=== PATIENT | male | born 1950 | race Caucasian/White ===

== ENCOUNTER → 2019-07-29 14:30 | Outpatient (BNVA) | payer MEDICARE, SELFPAY | PROVIDERS: PCP Nurse Practitioner Family; Visit Provider Nurse Practitioner Family | DX: Z11.4 Encounter for screening for human immunodeficiency virus [HIV] (principal); E53.8 Deficiency of other specified B group vitamins; Z13.6 Encounter for screening for cardiovascular disorders; E79.0 Hyperuricemia without signs of inflammatory arthritis and tophaceous disease; E55.9 Vitamin D deficiency, unspecified | CPT/HCPCS: 80053; 80061; 82306; 82607; 84550; 85025; 87806 ==

== ENCOUNTER 2019-12-01 15:51 | Emergency (ER) | payer MEDICARE, SELFPAY ==
[2019-12-01 15:55] VITALS: BP 120/80; PULSE 87; RESP 16; TEMP 36.7; O2SAT 93; BMI 24.6
[2019-12-01 16:05] VITALS: PULSE 80
--- NOTE | 2019-12-01 16:08 | ED_ITS ---
HPI - Extremity Problem General: Chief complaint: Extremity Problem,Nontraumatic Stated complaint: Ring stuck on finger Time Seen by Provider: 12/01/19 15:53 History of Present Illness: HPI Narrative: 69-year-old male patient presents to the emergency department with 2 to 3-day onset of ring stuck on his fourth right finger. He reports painful, reports pain scale 10 out of 10. He states has attempted soapy water and lubricants to help get the ring off. MD Complaint: extremity swelling (Fourth finger, right) Onset (ago): day(s) (2-3) Pain Consistency: constant Location: right and upper extremity Severity scale (1-10): >10 Quality: aching and constant Radiation: none Relieving factors: nothing Exacerbating factors: nothing Associated symptoms: Reports arthralgias; Deny chest pain, fever(s) or rash Review of Systems General: Reports: 10 or more systems reviewed and unremarkable except in HPI and below Const: Denies: fever(s), chills or diaphoresis Eyes: Denies: blurry vision or eye redness ENMT: Denies: throat pain, dental pain or disequilibrium Card: Denies: chest pain, palpitations or irregular heart rhythm Resp: Denies: dyspnea, productive cough, non-productive cough or wheezing GI: Denies: abdominal pain, nausea or vomiting : Denies: dysuria Musc: Reports: extremity swelling (Fourth ring finger, right); Denies: neck pain or back pain Skin/Breast: Denies: rash or pruritus Neuro: Denies: headache(s), weakness in extremities or behavioral changes Felix/Lymph: Denies: easy bruising PFS ED PFSH: Medical History (Updated 12/01/19 @ 16:15 by EDMOND Ayers) Hepatitis C, chronic Hyperuricemia Vitamin D deficiency Family History (Updated 03/03/19 @ 13:44 by Kaelyn Rios LPN, RT) Father Diabetes Hypertension Brother Diabetes Sister Diabetes Hypertension Social History Smoking and tobacco status: current every day smoker cigarettes Packs smoked per day: 1 Years cigarettes smoked: 52 [ Other cigarette details: started age 15 ] Quit status (tobacco): not considering quitting Alcohol intake: former Year of sobriety/quit date alcohol: 2017 Former alcohol use details: heavy use Lives independently: Yes Household members: none Marital status: Single Current occupational status: disabled History of recent travel: No Current gender identity: Male Physical Exam Const: COMMON NORMALS: no acute distress, patient oriented x3, healthy appearing and alert GENERAL APPEARANCE: cooperative, comfortable and well hydrated HENMT: COMMON NORMALS: normocephalic, Normal external nose present and moist oral mucous membranes HEAD & SCALP: normocephalic NOSE: Normal external nose present Eye: COMMON NORMALS: Equal, round and reactive pupils present and EOMs intact bilaterally GENERAL EYE: appearance normal, both eyes and all related structures PUPIL: Yes Equal, round and reactive pupils present Neck/C-Spine: COMMON NORMALS: full ROM and no lymphadenopathy GENERAL: Yes normal visual inspection and Yes trachea midline CERVICAL SPINE: Yes cervical ROM normal Lymph: LYMPHATIC: no lymphadenopathy noted Chest: COMMONS NORMALS: normal inspection of the chest Resp: COMMON NORMALS: normal respiratory effort and clear to auscultation bilaterally AUSCULTATION: clear to auscultation bilaterally Cardio: COMMON NORMALS: regular rhythm, S1 normal heart sound present and S2 normal heart sound present RHYTHM: regular rhythm HEART SOUNDS: S1 normal heart sound present and S2 normal heart sound present GI: COMMON NORMALS: Soft to palpation and non-tender INSPECTION: Yes normal to inspection PALPATION: Yes Soft to palpation : COMMON NORMALS: Yes no CVA tenderness BLADDER/KIDNEY EXAM: Yes no CVA tenderness Back/Pelvis: COMMON NORMALS: no CVA tenderness and thoracic and lumbar spine normal to inspection Extremity: COMMON NORMALS: normal to inspection and capillary refill normal GENERAL: Yes normal exam except as noted RIGHT UPPER EXTREMITY: Yes hand & digits Right hand and digits: Yes inspection (Swelling and redness to the fourth digit of the right hand, ring obviously too tight. Distal circulation intact, flexion extension within normal limits. Increased swelling at the second PIP) Neuro: COMMON NORMALS: patient oriented x3 and no focal motor deficits SENSORIUM/ORIENTATION: Yes alert Psych: COMMON NORMALS: mental status grossly normal, Normal thought process present and cooperative ACTIVITY/MOTOR BEHAVIOR: Yes appropriate eye contact THOUGHT PROCESS: Normal thought process present Skin: COMMON NORMALS: no rashes or lesions noted and turgor normal GENERAL SKIN EXAM: no rashes or lesions noted and turgor normal WOUNDS: Yes wounds noted (Superficial abrasion distal to ring due to trauma while attempting to remove ring) other (Negative abrasions to the volar side, localized to dorsal side only) NAILS: normal and other (Long length of nails noted) Course ED course: 69-year-old male patient presents to the emergency department with ring stuck on his right ring finger. Ring was easily removed with ring cutter. Abrasion was present to the right dorsal fourth digit, full flexion and extension noted after removal of the ring, patient reports pain now 2 out of 10. He denies further concerns. He agrees to keep hands clean with soap and water, request to attempt topical antibiotic therapy to help with abrasion healing. No signs and symptoms of infection. Vital Signs: Vital signs: Vital Signs Temperature 98.1 F 12/01/19 15:55 Pulse Rate 80 12/01/19 16:05 Respiratory Rate 16 12/01/19 15:55 Blood Pressure 120/80 12/01/19 15:55 Pulse Oximetry 93 12/01/19 15:55 Discharge Plan Discharge Patient Disposition: Home Clinical Impression: Ring avulsion injury of finger Condition: Stable Prescriptions: No Action gabapentin 600 mg tablet 600 mg PO TID Qty: 90 RF: 1 spironolactone 25 mg tablet See Rx Instructions .ROUTE .COMPLEX Qty: 90 RF: 1 propranolol 40 mg tablet See Rx Instructions .ROUTE .COMPLEX 90 Days Qty: 180 RF: 1 allopurinol 300 mg tablet See Rx Instructions .ROUTE .COMPLEX Qty: 90 RF: 1 carbidopa-levodopa 25-100 mg tablet See Rx Instructions .ROUTE .COMPLEX Qty: 180 RF: 1 potassium chloride 20 mEq tablet,ER particles/crystals See Rx Instructions .ROUTE .COMPLEX Qty: 180 RF: 1 ketoconazole 2 % shampoo 1 applic TOPICAL .COMPLEX 56 Days Qty: 120 RF: 0 furosemide 20 mg tablet 20 mg PO QAM Qty: 7 RF: 0 ketoconazole 2 % cream 1 applic TOPICAL BID Qty: 30 RF: 5 cyanocobalamin (vitamin B-12) 1,000 mcg/mL solution 1,000 mcg IM ONCE Qty: 1 RF: 1 magnesium oxide 400 mg magnesium capsule 400 mg PO BID Qty: 60 RF: 1 multivitamin [Daily Multi-Vitamin] Tablet 1 tab PO QAM Qty: 30 RF: 1 thiamine HCl (vitamin B1) 100 mg tablet 100 mg PO DAILY Qty: 30 RF: 1 folic acid 1 mg tablet 1 mg PO DAILY Qty: 30 RF: 5 Discharge Orders: Discharge Order (Routine); Ordered 12/01/19 Ordered By: Isabell Michele Referrals: Kaelyn Pond FNP [Primary Care Provider] - Discharge Diet: Usual diet Discharge Activity: Resume usual activity Patient Instructions: Abrasion (ED) Activity Restrictions/Additional Instructions: May apply triple antibiotic ointment to abrasion of the finger as needed Return to the emergency department if you develop red streaking on the right hand or inability to move your fingers. May apply cool compresses as needed for pain Return to the emergency department for any further concerns. Discharge Date/Time: 12/01/19 16:21 Coding Level of Care Code ED Fence Making Machine Operator for Jyoti Antony Exam Comprehensive
== END 2019-12-01 16:21 | disposition home or self-care (01) ==
PROVIDERS: Emergency Provider Nurse Practitioner Family; PCP Nurse Practitioner Family
DX: S60.414A Abrasion of right ring finger, initial encounter (principal); W49.04XA Ring or other jewelry causing external constriction, initial encounter; Z86.19 Personal history of other infectious and parasitic diseases; F17.210 Nicotine dependence, cigarettes, uncomplicated
CPT/HCPCS: 12345; 99281

== ENCOUNTER → 2019-12-28 17:08 | Outpatient (BNVA) | payer MEDICARE, SELFPAY | PROVIDERS: PCP Nurse Practitioner Family; Visit Provider Nurse Practitioner Family | DX: E79.0 Hyperuricemia without signs of inflammatory arthritis and tophaceous disease (principal); E53.8 Deficiency of other specified B group vitamins; Z13.6 Encounter for screening for cardiovascular disorders; E55.9 Vitamin D deficiency, unspecified; Z12.5 Encounter for screening for malignant neoplasm of prostate; F10.21 Alcohol dependence, in remission | CPT/HCPCS: 80053; 80061; 82306; 82607; 83735; 84550; 85025; G0103 ==

== ENCOUNTER → 2020-01-11 15:22 | Outpatient (BNVA) | payer MEDICARE, SELFPAY | PROVIDERS: PCP Nurse Practitioner Family; Visit Provider Nurse Practitioner Family | DX: B18.2 Chronic viral hepatitis C (principal); G47.33 Obstructive sleep apnea (adult) (pediatric); Z68.25 Body mass index [BMI] 25.0-25.9, adult; F17.210 Nicotine dependence, cigarettes, uncomplicated; Z71.89 Other specified counseling | CPT/HCPCS: 80053; 86705; 86706; 86803; 87340; 87522; 87902 ==

== ENCOUNTER 2020-02-01 09:01 | Outpatient (CLI) | payer MEDICARE, MEDICAID, SELFPAY ==
--- NOTE | 2020-02-01 09:30 | US_ITS ---
WS: [id number] RIGHT UPPER QUADRANT ULTRASOUND HISTORY: B18.2 - Chronic viral hepatitis C COMPARISON: None available. Liver: 16.2 cm in length. Normal size liver. No bile duct dilatation or mass. Gallbladder: Prior cholecystectomy. CBD: 0.4 cm Pancreas: Not well visualized. Right kidney: 10.9 cm in length. RIGHT kidney is normal size. No hydronephrosis. There are multiple a reas of decreased echogenicity throughout the cortex. These were previously described and thought to be cysts. No solid mass identified. Aorta and IVC: Unremarkable abdominal aorta and IVC. No ascites. US/US liver [id number] IMPRESSION: 1. Prior cholecystectomy. 2. No bile duct dilatation. 3. Multiple RIGHT renal cortical cysts with the largest measuring 1.8 cm.
== END 2020-02-01 09:02 | disposition home or self-care (01) ==
LOC: RAD 09:17
PROVIDERS: PCP Nurse Practitioner Family; Visit Provider Nurse Practitioner Family
DX: B18.2 Chronic viral hepatitis C (principal); Z90.49 Acquired absence of other specified parts of digestive tract; N28.1 Cyst of kidney, acquired
CPT/HCPCS: 76705

== ENCOUNTER → 2020-03-16 09:04 | Outpatient (BNVA) | payer MEDICARE, SELFPAY | PROVIDERS: PCP Nurse Practitioner Family; Visit Provider Internal Medicine | DX: B18.2 Chronic viral hepatitis C (principal) | CPT/HCPCS: 87522 ==

== ENCOUNTER 2020-08-02 09:42 | Outpatient (CLI) | payer MEDICARE, MEDICAID, SELFPAY ==
--- NOTE | 2020-08-02 11:14 | N.ONRAD NP_ITS ---
Radiation Oncology Consultation Patient Name: Marcos Johnson Date of : 1950 Date of Service: 08/02/2020 Attending Physician: Clemente Herrera M.D. Marcos Johnson was seen in consultation this morning for evaluation regarding adjuvant head and neck radiotherapy for the management of a recently diagnosed oral cavity carcinoma. The patient was evaluated by his primary care physician in February for an enlarged left cervical lymph node and a painful sore in his mouth. He was evaluated by Sudarshan Adam M.D, an supervisor [facility] in [place], [place]. 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 A PET CT scan ordered on April 26, 2020 (independently visualized in [facility]) revealed hypermetabolic activity involving the anterior aspect of the mandible with corresponding CT thinning of the mandible without evidence of lymphadenopathy or metastatic disease. Physical examination described an exophytic mass measuring 3.5 to 4 cm in the midline anterior floor of mouth involving the ventral tongue. He was referred to the [facility] in [place], [place]. A composite resection of the anterior floor mouth with anterior glossectomy and segmental mandibular resection with bilateral modified radical neck dissection and tracheostomy was performed on May 30, 2020. An immediate reconstruction of the oromandibular defect with a left chimeric scapular tip free flap and myocutaneous latissimus dorsi free flap with an oral vestibuloplasty was completed on June 02, 2020. 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 All surgical margins were. A total of 93 lymph nodes were harvested without evidence of metastatic disease. The patient's hospital admission was complicated by a healthcare associated pneumonia of the left lower lobe of the lung (respiratory cultures positive for Raoultella ornithinolytica) requiring transfer to the intensive care unit. Dietary consultation was obtained with recommendations made for nutritional supplementation (5 1/2 cans per day of Nutren 1.5). He was evaluated for postoperative radiotherapy. I discussed with Mr. 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 close margins, lymphovascular invasion/perineural, pN2/pN3, or advanced tumors; pT3-pT4). I would endorse a six week course of radiation therapy. Prior to beginning treatment, a radiotherapy planning CT scan with contrast will be acquired to delineate the clinical target volumes. I reviewed the potential toxicities of head and neck radiotherapy. The patient has verbalized understanding and would like to proceed as advocated. Signed by: Dr. Clemente Herrera 08/02/2020 11:43:11 AM
[2020-08-02 12:00] LABS: Basophils % 0.3 %; Eosinophils # 0.1 10^3/uL (0.0-0.8); Eosinophils % 1.4 %; Hematocrit 33.3 % (42.0-52.0); Hemoglobin 10.8 g/dL (11.7-16.6); Lymphocytes # 2.7 10^3/uL (0.8-4.8); Lymphocytes % 37.5 %; Mean Corpuscular HGB Conc 32.4 g/dL (30.0-36.0); Mean Corpuscular Hemoglobin 29.7 pg (28.0-34.0); Mean Corpuscular Volume 91.5 fL (80-94); Mean Platelet Volume 11.4 fL (7.4-10.4); Monocytes # 0.6 10^3/uL (0.2-0.9); Monocytes % 8.8 %; Neutrophils % 51.7 %; Nucleated Red Blood Cells % 0 %; Platelet Count 215 10^3/cmm (130-400); Red Blood Count 3.64 10^6/uL (4.1-5.3); Red Cell Distribution Width 17.4 % (12.1-15.1); White Blood Count 7.2 10^3/uL (4.0-10.0)
[2020-08-02 12:29] LABS: Alanine Aminotransferase < 5 U/L (0-41); Albumin Level 2.6 g/dL (3.5-5.2); Alkaline Phosphatase 53 IU/L (40-130); Anion Gap 11.1 (5-19); Aspartate Amino Transferase 15 U/L (0-40); Blood Urea Nitrogen 11 mg/dL (8-23); Calcium 8.6 mg/dL (8.5-10.5); Carbon Dioxide 31 mmol/L (22-29); Chloride 98 mmol/L (98-107); Globulin 4.6 g/dL (1.3-4.6); Glomerular Filtration Rate 74.5 mL/min (90-130); Glucose 96 mg/dL (65-115); Osmolality Calculated 281 mOsm/kg (285-295); Potassium 4.1 mmol/L (3.5-5.1); Sodium 136 mmol/L (136-145); Total Bilirubin 0.2 mg/dL (0.15-1.2); Total Protein 7.2 g/dL (6.6-8.7)
== END 2020-08-02 09:43 | disposition home or self-care (01) ==
PROVIDERS: PCP Nurse Practitioner Family; Visit Provider Radiology Radiation Oncology
DX: C06.9 Malignant neoplasm of mouth, unspecified (principal); C77.0 Secondary and unspecified malignant neoplasm of lymph nodes of head, face and neck; K13.79 Other lesions of oral mucosa; Z79.899 Other long term (current) drug therapy
CPT/HCPCS: 36415; 80053; 85025; 99205

== ENCOUNTER 2020-08-04 11:13 | Inpatient (IN) | payer MEDICARE, MEDICAID, SELFPAY ==
[2020-08-04] VITALS (21 sets, daily range): BP systolic 116–167; BP diastolic 65–95; PULSE 58–125; RESP 10–20; TEMP 35.7–36.7; O2SAT 89–100; BMI 21.9
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
--- NOTE | 2020-08-04 12:25 | CT_ITS ---
WS: [id number] CT CHEST WITH INTRAVENOUS CONTRAST HISTORY: L lateral wall abscess following surgery 2 mo ago TECHNIQUE: Contiguous 5 mm axial imaging performed on the thorax. Coronal and sagittal reformats are submitted. All CT scans at [facility] use at least one of these dose optimization techniq ues: automated exposure control; mA and/or kV adjustment per patient size (includes targeted exams wh ere dose is matched to clinical indication); or iterative reconstruction. CONTRAST: Visipaque 320; 95 mL IV. DLP: 694.45 mGy.cm COMPARISON: 05/29/2020 Lungs and central airway: Mild emphysematous changes. Linear area of fibrosis and scarring in the jannie gula and LEFT lower lobe. No pneumonia. No lobar collapse or mass. Mild elevation of the LEFT hemidia phragm with LEFT pleural thickening. Pleura: Mild thickening of the LEFT thoracic the lung bases. Heart and pericardium: Mild atherosclerosis of the coronary arteries. No enlargement of the heart jarrett mbers. Mediastinum and josafat: Subcentimeter mediastinal and hilar lymph nodes. No adenopathy. Small lymph nod es in the LEFT axilla. Vessels: Mild atherosclerosis aorta. Normal size pulmonary artery. LEFT vertebral artery arises from the aorta. Chest wall and lower neck: There is a large fluid collection with peripherally enhancing wall centere d lateral to the LEFT chest wall. This elongated fluid collection with peripheral enhancement extends over a length of 12 cm and begins at the inferior border of the scapula and extends inferiorly along the chest wall with involvement of the intercostal muscles. Fluid collection extends to the scapula. There is a sharp defect within the scapula which is probably from a prior bone graft site as per his tory. Largest diameter transversely is 7.1 cm. Upper abdomen: PEG tube is in good position. Splenules versus splenosis in the LEFT upper quadrant ve rsus infarcted spleen. Multiple soft tissue nodules in the LEFT upper quadrant were negative on a [place] or PET/CT of 04/26/2020. LEFT kidney is not identified and may have been surgically removed. Osseous structures: Mild chest deformity on the LEFT due to prior healed rib fractures. Additional he aled rib fractures on the RIGHT. CT/CT chest w con* [id number] IMPRESSION: 1. Large fluid collection with peripheral enhancement centered along the LEFT lateral chest wall to involve the inferior scapula. Collection measures 12.0 x 7.1 cm and most consistent with an abscess. Osteomyelitis cannot be excluded in volving the inferior scapula due to the surrounding infection. 2. Mild pleural thickening LEFT lung base with elevated diaphragm is stable. 3. No adenopathy. 4. PEG tube in good position. 5. Focal soft tissue nodules in the LEFT upper abdomen are likely due to splen ules are stenosis or infarct is spleen. Negative on prior PET/CT.
[2020-08-04 12:46] LABS: Basophils % 0.3 %; Eosinophils # 0.1 10^3/uL (0.0-0.8); Eosinophils % 1.6 %; Hematocrit 32.8 % (42.0-52.0); Hemoglobin 10.9 g/dL (11.7-16.6); Lymphocytes # 2.6 10^3/uL (0.8-4.8); Lymphocytes % 42.1 %; Mean Corpuscular HGB Conc 33.2 g/dL (30.0-36.0); Mean Corpuscular Hemoglobin 28.8 pg (28.0-34.0); Mean Corpuscular Volume 86.8 fL (80-94); Mean Platelet Volume 10.7 fL (7.4-10.4); Monocytes # 0.6 10^3/uL (0.2-0.9); Neutrophils # 2.82 10^3/uL (1.8-7.7); Neutrophils % 45.8 %; Nucleated Red Blood Cells % 0 %; Platelet Count 219 10^3/cmm (130-400); Red Blood Count 3.78 10^6/uL (4.1-5.3); Red Cell Distribution Width 17.2 % (12.1-15.1); White Blood Count 6.2 10^3/uL (4.0-10.0)
[2020-08-04] MEDS: iodixanol 320 mg/mL 100mL Btl IV (12:54)
[2020-08-04 13:05] LABS: Lactic Sepsis W/Reflex 1.6 mmol/L (0.5-2.2)
[2020-08-04] MEDS: vancomycin 1,000 MG in sodium chloride 0.9% 250 ML 250 MG IV (13:05)
[2020-08-04 13:25] LABS: Alanine Aminotransferase < 5 U/L (0-41); Albumin Level 2.7 g/dL (3.5-5.2); Alkaline Phosphatase 57 IU/L (40-130); Anion Gap 11.4 (5-19); Aspartate Amino Transferase 16 U/L (0-40); Blood Urea Nitrogen 12 mg/dL (8-23); Calcium 8.6 mg/dL (8.5-10.5); Carbon Dioxide 30 mmol/L (22-29); Chloride 100 mmol/L (98-107); Globulin 4.3 g/dL (1.3-4.6); Glomerular Filtration Rate 66.8 mL/min (90-130); Glucose 118 mg/dL (65-115); Osmolality Calculated 285 mOsm/kg (285-295); Potassium 4.4 mmol/L (3.5-5.1); Sodium 137 mmol/L (136-145); Total Bilirubin 0.2 mg/dL (0.15-1.2)
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
[2020-08-04] MEDS: famotidine 20 mg/2 mL INJ IVP (16:40)
[2020-08-04] MEDS: lactated ringers 1,000 ML 100 ML IV (16:40)
[2020-08-04 16:50] LABS: Basophils % 0.3 %; Eosinophils # 0.1 10^3/uL (0.0-0.8); Eosinophils % 1.4 %; Hematocrit 34.7 % (42.0-52.0); Hemoglobin 11.2 g/dL (11.7-16.6); Lymphocytes # 3.2 10^3/uL (0.8-4.8); Lymphocytes % 46.8 %; Mean Corpuscular HGB Conc 32.3 g/dL (30.0-36.0); Mean Corpuscular Hemoglobin 29.2 pg (28.0-34.0); Mean Corpuscular Volume 90.4 fL (80-94); Mean Platelet Volume 10.6 fL (7.4-10.4); Monocytes # 0.7 10^3/uL (0.2-0.9); Monocytes % 9.4 %; Neutrophils # 2.89 10^3/uL (1.8-7.7); Nucleated Red Blood Cells % 0 %; Platelet Count 223 10^3/cmm (130-400); Red Blood Count 3.84 10^6/uL (4.1-5.3); Red Cell Distribution Width 17.6 % (12.1-15.1); White Blood Count 6.9 10^3/uL (4.0-10.0)
[2020-08-04 17:02] LABS: Blood Urea Nitrogen 11 mg/dL (8-23); Calcium 8.5 mg/dL (8.5-10.5); Carbon Dioxide 30 mmol/L (22-29); Chloride 100 mmol/L (98-107); Glomerular Filtration Rate 96.4 mL/min (90-130); Glucose 97 mg/dL (65-115); Osmolality Calculated 281 mOsm/kg (285-295); Sodium 136 mmol/L (136-145)
[2020-08-04 17:03] LABS: Anion Gap 10.4 (5-19); Potassium 4.4 mmol/L (3.5-5.1)
[2020-08-04] MEDS: levofloxacin-dextrose 5 % 500 MG/100 ML PREMIX 100 MG IV ×2 (18:20→21:42)
[2020-08-04] MEDS: vancomycin 1,000 MG SDV 1000 MG IRRIGATION (18:30)
--- NOTE | 2020-08-04 19:18 | SUR.OPER ---
1917 report given to hi aparicio, all questions answered, nurse ready to take pt.
--- NOTE | 2020-08-04 19:55 | P.OP_ITS ---
Operative Report Date of procedure: August 04, 2020 Pre-op Diagnosis: Left posterior lateral chest wall subscapular abscess Post-op diagnosis: same Procedure Done: Incision and drainage of left posterior lateral chest wall abscess with jet lavage irrigation and placement of wound VAC Wound dimensions are 26 cm in length by 10 cm in width by 3 cm in depth Implants: None Specimens removed/disposition: Purulent material collected and sent for appropriate cultures Surgeon: Vinayak Luu Anesthesia: Other (Laryngeal mask anesthesia) Condition: stable Disposition: ICU Brief History: Mr. Johnson is a 69-year-old gentleman status post resection of the anterior floor of the mouth with anterior glossectomy and segmental mandibular resection with bilateral modified radical neck dissection, tracheostomy and immediate reconstruction of the oral mandibular defect in the left chimeric scapular tip free flap and myocutaneous latissimus dorsi free flap with oral vestibuloplasty. This procedure was performed on June 02. He presented to the emergency department today with acute swelling of his left posterior lateral chest wall in the subscapular region. Clinically this appears to be enlarging abscess at the donor site for his myocutaneous latissimus dorsi flap. I have recommended expeditious evaluation in the surgical theater with appropriate drainage. Details the risk of the procedure were carefully discussed with Mr. Johnson and his . Proper consents have been reviewed and signed. Procedure: Mr. Johnson was taken to the operating room theater after careful preoperative evaluation by our anesthesia colleagues. He underwent laryngeal mask anesthesia and was carefully positioned in the right lateral decubitus position and was carefully secured. His entire left lateral and posterior chest wall was sterilely prepped and draped. Area of abscess cavity which has nearly spontaneously ruptured is along the incision line for his prior myocutaneous flap harvesting. This area was opened up with spontaneous return of purulent material which was collected to be sent for culture and Gram stain. Following this, the entire area was carefully explored and did not extend inferiorly but another 2 cm. However, superiorly and medially there was substantial extension of this perifascia abscess collection. #10 scalpel blade was utilized to open up completely unroofed this space area. Devitalized material was sharply removed with #10 scalpel blade and with Metzenbaum scissors. This does extend down through the tip of the scapular region where there is a sharp and thin edge which may be related to the prior harvesting. After careful meticulous debridement, 3 L of jet lavage irrigation was performed with vancomycin solution and saline. Bleeding points were controlled with judicious use of cautery. Following completion of unroofing and evacuation of this large abscess cavity, the resultant wound measures 26 cm in length by 10 cm in width by 3 cm in depth. At this point, wound VAC was subsequently carefully placed and secured and connected to negative suction 125 mmHg. Mr. Johnson tolerated procedure well was carefully returned to supine position where he was awakened from laryngeal mask anesthesia. He was carefully transferred to the ICU bed and then to the ICU. He had stable vital signs throughout the procedure and upon arrival to the ICU. I did director counseling bureau with his at the completion of the procedure. We will plan to continue IV antibiotics for another 24 to 48 hours and make preparations for continued antibiotics on outpatient basis and subsequent follow-up with his operative team in [place] as availability permits with the option to also continue follow-up with our [facility] wound care services department.
[2020-08-04] MEDS: fentaNYL 12 mcg Patch 1 PATCH TRANSDERMA (21:43)
[2020-08-04] MEDS: gabapentin 300 mg Capsule 600 MG PO (21:43)
[2020-08-05] VITALS (33 sets, daily range): BP systolic 88–154; BP diastolic 47–81; PULSE 65–84; RESP 9–20; TEMP 36.1–37.1; O2SAT 91–95; BMI 21.9
[2020-08-05] MEDS: oxyCODONE-APAP 5-325 mg Tablet 1 TAB PO ×2 (00:02→06:14)
[2020-08-05] MEDS: lactated ringers 1,000 ML 100 ML IV ×2 (02:14→12:12)
[2020-08-05 04:43] LABS: Basophils % 0.4 %; Eosinophils # 0.1 10^3/uL (0.0-0.8); Eosinophils % 1.5 %; Hematocrit 29.7 % (42.0-52.0); Hemoglobin 9.9 g/dL (11.7-16.6); Lymphocytes # 3.2 10^3/uL (0.8-4.8); Lymphocytes % 43.9 %; Mean Corpuscular HGB Conc 33.3 g/dL (30.0-36.0); Mean Corpuscular Hemoglobin 29.4 pg (28.0-34.0); Mean Corpuscular Volume 88.1 fL (80-94); Mean Platelet Volume 11.1 fL (7.4-10.4); Monocytes # 0.7 10^3/uL (0.2-0.9); Neutrophils # 3.17 10^3/uL (1.8-7.7); Neutrophils % 43.9 %; Nucleated Red Blood Cells % 0 %; Platelet Count 207 10^3/cmm (130-400); Red Blood Count 3.37 10^6/uL (4.1-5.3); Red Cell Distribution Width 17.1 % (12.1-15.1); White Blood Count 7.2 10^3/uL (4.0-10.0)
[2020-08-05 05:01] LABS: Blood Urea Nitrogen 8 mg/dL (8-23); Calcium 7.8 mg/dL (8.5-10.5); Carbon Dioxide 30 mmol/L (22-29); Chloride 99 mmol/L (98-107); Glomerular Filtration Rate 112.5 mL/min (90-130); Glucose 87 mg/dL (65-115); Osmolality Calculated 280 mOsm/kg (285-295); Sodium 136 mmol/L (136-145)
--- NOTE | 2020-08-05 05:44 | PC.NURSE ---
Shift Summary Patient arrived last night at 1930 from the OR, patient was very tired at first but woke up a few hours later alert and oriented. Plan is for patient to be here until Friday for IV antibiotics, get home wound care to help manage the wound vac and start him on some tube feeds to increase his nutrition for healing. His mom was at bedside when he got back from surgery and took his things home and is planning on bringing in clean clothes in the morning. Patient complained of mild back pain last night and responded to pain medicine well, has been resting all night. Patient was weaned off the oxygen by 2029 and has tolerated room air well.
[2020-08-05] MEDS: allopurinol 300 mg Tablet PO (06:05)
[2020-08-05] MEDS: aspirin 325 mg Tablet PO (06:05)
[2020-08-05] MEDS: vancomycin 1,000 MG in sodium chloride 0.9% 250 ML 250 MG IV (06:05)
--- NOTE | 2020-08-05 08:26 | PM.PN ---
Subjective Subjective: Interval history: Postop day #1 status post incision and drainage of left lateral and posterior chest wall and back abscess status post latissimus dorsi flap free graft harvest for oral and neck reconstruction. Mr. Johnson had an uneventful night. Vital signs are stable. He is sleeping on rounds this morning. Nursing service performed no concerns. Low output in the wound VAC which is functioning well. Vitals/I&O/Wt Last Vital Signs Temp 98.2 F 08/05/20 07:00 Pulse 77 08/05/20 07:00 Resp 9 L 08/05/20 07:00 BP 88/47 08/05/20 07:00 Pulse Ox 95 08/05/20 07:00 08/04/20 08/05/20 08/05/20 22:59 06:59 14:59 Intake Total 200 / 450 1076.667 / 1526.667 250 / 250 Output Total 50 / 50 650 / 700 Balance 150 / 400 426.667 / 826.667 250 / 250 Weight last 48 hrs Weight 171 lb Physical Exam Chest: OTHER: Wound VAC dressing is clean and dry and intact with appropriate suction at 125 mmHg. Resp: COMMON NORMALS: normal respiratory effort, No use of accessory muscles and clear to auscultation bilaterally EFFORT & INSPECTION: Yes symmetric chest movement AUSCULTATION: clear to auscultation bilaterally Cardio: COMMON NORMALS: regular rate, regular rhythm, S1 normal heart sound present and No murmurs present (Cardio) RATE: regular rate RHYTHM: regular rhythm HEART SOUNDS: S1 normal heart sound present Data : 08/05/20 03:27 08/05/20 03:27 Micro: Microbiology 08/04/20 18:33 Gram Stain - Final Chest 08/04/20 12:50 Blood Culture - Preliminary Blood SPECIMEN COLLECTED 08/04/20 12:35 Blood Culture - Preliminary Blood SPECIMEN COLLECTED A&P Assessment and plan (1) Abscess of scapular region: POD #1 status post I&D of left lateral and posterior chest wall abscess Plan: We will transfer to medical/surgical [place]. Nutrition per our dietary service through PEG tube. Soft GI diet for eating pleasure. We are attempting to contact [facility] to arrange appropriate follow-up at their request through prior conversation with our emergency department. We are also attempting to arrange for home wound VAC device. If follow-up in [place] cannot be arranged in ectasis fashion, after discussion, he can follow-up with wound care services. He already has home health nurse in place. Status: Acute Attestations Medical Necessity Statement*: POD #1 status post drainage of large left lateral chest wall abscess. Time Spent in Patient Care: less than 15 minutes Coding Level of Care Code Acute Radial Drill Press Set Up Operator for Jyoti Antony Diagnoses Abscess of scapular region L02.212
[2020-08-05] MEDS: magnesium oxide 400 mg tablet PO ×2 (08:31→17:04)
[2020-08-05] MEDS: cyanocobalamin 1,000 mcg Tablet 1000 MCG PO (08:31)
[2020-08-05] MEDS: potassium chloride ER 20 mEq Tablet 10 MEQ PO ×2 (08:31→17:04)
[2020-08-05] MEDS: folic acid 1 mg Tablet PO (08:31)
[2020-08-05] MEDS: thiamine 100 mg Tablet PO (08:31)
[2020-08-05] MEDS: pantoprazole 40 mg SDV IVP (08:31)
[2020-08-05] MEDS: spironolactone 25 mg Tablet PO (08:31)
[2020-08-05] MEDS: propranolol 20 mg Tablet PO ×2 (08:31→17:08)
[2020-08-05] MEDS: gabapentin 300 mg Capsule 600 MG PO ×3 (08:31→20:56)
[2020-08-05] MEDS: carbidopa-levodopa 25-100mg Tablet 1 EACH PO ×2 (08:31→17:04)
--- NOTE | 2020-08-05 10:36 | PC.NUTR ---
TF consult. 2 feeding options recommended as indicated below, per pt and MD preference: Nutren 2.0, 5 times per day, with 240 ml (1 cup) H2O flushes q4 hrs (6 times per day) to provide 2500 kcal, 105 g protein, and 2305 ml H2O. This formula is not available in facility and would be provided by pt/family. OR Jevity 1.2, 350 ml bolus q4 hrs (6x per day), with 120 ml H2O flush q4 hrs (6 times per day) to provide 2520 kcal, 117 g protein, and 2415 ml H2O. This is available in facility at this time. Recommend monitor glucose, Na, K, and renal labs, given CKD stage 3. Also recommend speech evaluation for oral diet provision. Recommend liquids to be nectar thick per mother's statements, and possible change to pureed texture of diet. See RD assessment for further details.
[2020-08-05] MEDS: famotidine 20 mg Tablet PO (12:30)
[2020-08-05] MEDS: sennosides 8.6 mg Tablet PO (12:30)
[2020-08-05] MEDS: ketoconazole Cream 15 gm 1 APPLIC TOPICAL ×2 (12:32→21:07)
[2020-08-05] MEDS: vancomycin 1,250 MG/250 ML PIGGYBACK 250 MG IV (17:04)
--- NOTE | 2020-08-05 18:12 | PC.NURSE ---
SHIFT SUMMARY PATIENT HAS DONE WELL TODAY. MINIMAL COMPLAINTS OF PAIN. TOLERATING SOFT FOODS WELL. CRUSHING MEDS AND PLACING IN APPLESAUCE. GOOD URINE OUTPUT. WOUND VAC IN PLACE. NO COMPLAINTS AT THIS TIME.
[2020-08-05] MEDS: levofloxacin-dextrose 5 % 500 MG/100 ML PREMIX 100 MG IV (20:59)
[2020-08-06] VITALS (7 sets, daily range): BP systolic 93–118; BP diastolic 56–71; PULSE 73–84; RESP 16–18; TEMP 36.6–37.4; O2SAT 91–95; BMI 21.9
[2020-08-06] MEDS: lactated ringers 1,000 ML 100 ML IV ×3 (00:18→17:40)
[2020-08-06] MEDS: vancomycin 1,250 MG/250 ML PIGGYBACK 250 MG IV ×2 (04:06→22:47)
--- NOTE | 2020-08-06 06:07 | P.PN_ITS ---
Subjective Subjective: Interval history: Postop day #2 status post I&D of large left chest wall abscess with placement of wound VAC. Mr. Johnson appears to be comfortable. He has remained afebrile. Morning lab is pending. Vitals/I&O/Wt Last Vital Signs Temp 98.4 F 08/06/20 04:00 Pulse 82 08/06/20 04:00 Resp 16 08/06/20 04:00 BP 118/60 08/06/20 04:00 Pulse Ox 92 08/06/20 04:00 08/05/20 08/05/20 08/06/20 14:59 22:59 06:59 Intake Total 1246.667 / 4499.325 6211 / 2716.667 132.5 / 2849.167 Output Total 225 / 225 1650 / 1875 250 / 2125 Balance 1021.667 / 1021.667 -180 / 841.667 -117.5 / 724.167 Weight last 48 hrs Weight 171 lb Weight 171 lb Physical Exam Chest: OTHER: Wound VAC dressing remains in position. Resp: COMMON NORMALS: normal respiratory effort, No retractions, No use of accessory muscles and clear to auscultation bilaterally AUSCULTATION: clear to auscultation bilaterally Cardio: COMMON NORMALS: regular rate, regular rhythm, S1 normal heart sound pr esent and No murmurs present (Cardio) RATE: regular rate RHYTHM: regular rhythm HEART SOUNDS: S1 normal heart sound present Extremity: COMMON NORMALS: no clubbing, cyanosis or edema Data : 08/05/20 03:27 08/05/20 03:27 Micro: Microbiology 08/04/20 12:50 Blood Culture - Preliminary Blood NEGATIVE TO DATE 08/04/20 12:35 Blood Culture - Preliminary Blood NEGATIVE TO DATE 08/04/20 18:33 Gram Stain - Final Chest A&P Assessment and plan (1) Abscess of scapular region: Mr. Johnson continues to do well. I will plan for reinspection of his chest wall wound with debridement, irrigation and replacement of wound VAC for tomorrow. We are currently awaiting arrival of a home wound VAC pump. We are also awaiting confirmation of follow- up with the surgeons at the [facility] in [place]. Hopefully, we will be able to discharged home after debridement and wound VAC replacement t omorrow. If arrangements cannot be made in a timely fashion to be seen by his physicians at the [facility], he will be scheduled for follow-up in the wound care services department. Status: Acute Attestations Medical Necessity Statement*: Status post latissimus dorsi free graft harvesting from the left chest wall for oral pharyngeal reconstruction. Left chest wall abscess status post incision and drainage of large chest wall wound and placement of wound VAC. Time Spent in Patient Care: less than 15 minutes Coding Level of Care Code Acute Fish Straightener for Jyoti Antony Diagnoses Abscess of scapular region L02.212
[2020-08-06] MEDS: multivitamin therapeutic Tablet 1 TAB PO (06:18)
[2020-08-06] MEDS: aspirin 325 mg Tablet PO (06:18)
[2020-08-06] MEDS: allopurinol 300 mg Tablet PO (06:18)
[2020-08-06] MEDS: cyanocobalamin 1,000 mcg Tablet 1000 MCG PO (09:50)
[2020-08-06] MEDS: sennosides 8.6 mg Tablet PO (09:50)
[2020-08-06] MEDS: spironolactone 25 mg Tablet PO (09:51)
[2020-08-06] MEDS: carbidopa-levodopa 25-100mg Tablet 1 EACH PO ×2 (09:51→17:39)
[2020-08-06] MEDS: thiamine 100 mg Tablet PO (09:51)
[2020-08-06] MEDS: famotidine 20 mg Tablet PO (09:51)
[2020-08-06] MEDS: propranolol 20 mg Tablet PO ×2 (09:51→17:39)
[2020-08-06] MEDS: potassium chloride ER 20 mEq Tablet 10 MEQ PO ×2 (09:51→17:39)
[2020-08-06] MEDS: magnesium oxide 400 mg tablet PO ×2 (09:52→17:39)
[2020-08-06] MEDS: folic acid 1 mg Tablet PO (09:52)
[2020-08-06] MEDS: gabapentin 300 mg Capsule 600 MG PO ×3 (09:52→20:12)
[2020-08-06] MEDS: pantoprazole 40 mg SDV IVP (09:53)
--- NOTE | 2020-08-06 10:50 | PC.NURSE ---
Rcvd order from Dr Luu to start tube feeding. Buttermaker put order in to start Jevity 1.2 350ml bolus Q4H and 120ml water flush Q4H.
--- NOTE | 2020-08-06 11:16 | PC.NURSE ---
Administered 350ml Jevity 1.2 and 120ml water in PEG.
[2020-08-06 17:08] LABS: Vancomycin Trough 22.8 ug/mL (10-15)
--- NOTE | 2020-08-06 17:28 | PC.NURSE ---
vancomycin trough is 22.8. technical publications writer spoke with Doyle in pharmacy and per Doyle hold dose of Vancomycin scheduled for 1700
[2020-08-06] MEDS: ketoconazole Cream 15 gm 1 APPLIC TOPICAL (17:39)
--- NOTE | 2020-08-06 17:55 | PC.NURSE ---
cleaned around PEG tube with NS and cotton swab.
--- NOTE | 2020-08-06 18:51 | PC.NURSE ---
administered tube feeding as ordered.
[2020-08-06] MEDS: oxyCODONE-APAP 5-325 mg Tablet 1 TAB PO (20:11)
[2020-08-06] MEDS: levofloxacin-dextrose 5 % 500 MG/100 ML PREMIX 100 MG IV (20:13)
[2020-08-07] VITALS (16 sets, daily range): BP systolic 86–126; BP diastolic 52–89; PULSE 59–87; RESP 16–20; TEMP 36.3–37.6; O2SAT 91–100
--- NOTE | 2020-08-07 00:33 | PC.NURSE ---
attempted to notify Dr Luu of bp 86/52, was told by laser beam machine operator that Dr Luu was off call without coverage, notified boarding house manager and was advised to call the cardiology on-call, Dr Gasca, received order from Dr Gasca to increase IVF to 125 ml/hr untill bp was back in normal range
[2020-08-07] MEDS: lactated ringers 1,000 ML 100 ML IV (05:17)
--- NOTE | 2020-08-07 06:41 | PM.PN ---
Subjective Subjective: Interval history: Postop day #3 status post I&D of large left chest wall abscess with wound VAC placement. Mr. Johnson has continued to do well. We are still awaiting arrival of the wound VAC system so he may be discharged back to home. Vital signs are stable. Postop discomfort under good control. Vitals/I&O/Wt Last Vital Signs Temp 97.9 F 08/07/20 04:00 Pulse 73 08/07/20 04:00 Resp 18 08/07/20 04:00 BP 94/59 08/07/20 04:00 Pulse Ox 96 08/07/20 04:00 08/06/20 08/06/20 08/07/20 14:59 22:59 06:59 Intake Total 956.667 / 593.595 4653 / 6128.667 2324 / 8452.667 Output Total 250 / 250 375 / 625 720 / 1345 Balance 706.667 / 590.031 9135 / 5503.667 1604 / 7107.667 Weight last 48 hrs Weight 171 lb Weight 171 lb Physical Exam Chest: OTHER: Wound VAC is in good position. No substantial air leak. Moderate drainage in canister. Resp: COMMON NORMALS: normal respiratory effort, No use of accessory muscles and clear to auscultation bilaterally EFFORT & INSPECTION: Yes able to speak in complete sentences AUSCULTATION: clear to auscultation bilaterally Cardio: COMMON NORMALS: regular rate, regular rhythm and S1 normal heart sound present RATE: regular rate RHYTHM: regular rhythm HEART SOUNDS: S1 normal heart sound present Data : 08/05/20 03:27 08/05/20 03:27 Micro: Microbiology 08/04/20 18:33 Gram Stain - Final Chest Tissue Culture - Preliminary Yeast A&P Assessment and plan (1) Abscess or cellulitis of back: Postop day #3 status post I&D Plan: We will return to operating room theater for conscious sedation to allow for initial wound VAC dressing change to this large wound, debridement as needed, and replacement of wound VAC. Will plan to discharge home as soon as we can obtain a wound VAC system that will allow for home use. Status: Acute Attestations Medical Necessity Statement*: Status post I&D of large abscess surgical wound left chest wall and back Time Spent in Patient Care: less than 15 minutes Coding Level of Care Code Acute Research Investigator for Chg Fwd Diagnoses Abscess or cellulitis of back
[2020-08-07] MEDS: propranolol 20 mg Tablet PO ×2 (10:30→17:06)
[2020-08-07] MEDS: gabapentin 300 mg Capsule 600 MG PO ×3 (10:30→21:05)
[2020-08-07] MEDS: sennosides 8.6 mg Tablet PO (10:31)
[2020-08-07] MEDS: carbidopa-levodopa 25-100mg Tablet 1 EACH PO ×2 (10:31→17:06)
[2020-08-07] MEDS: thiamine 100 mg Tablet PO (10:31)
[2020-08-07] MEDS: spironolactone 25 mg Tablet PO (10:31)
[2020-08-07] MEDS: famotidine 20 mg Tablet PO (10:31)
[2020-08-07] MEDS: cyanocobalamin 1,000 mcg Tablet 1000 MCG PO (10:31)
[2020-08-07] MEDS: magnesium oxide 400 mg tablet PO ×2 (10:31→17:06)
[2020-08-07] MEDS: potassium chloride ER 20 mEq Tablet 10 MEQ PO ×2 (10:32→17:06)
[2020-08-07] MEDS: ketoconazole Cream 15 gm 1 APPLIC TOPICAL ×2 (10:32→17:07)
[2020-08-07] MEDS: folic acid 1 mg Tablet PO (10:32)
[2020-08-07] MEDS: pantoprazole 40 mg SDV IVP (10:32)
--- NOTE | 2020-08-07 11:00 | PC.SOCIAL ---
IMM Update pg.2 of IMM updated and reviewed with patient, who verbalized understanding. Copy provided.
[2020-08-07] MEDS: fentaNYL 50 mcg/mL INJ 2mL IVP (12:33)
--- NOTE | 2020-08-07 12:43 | P.OP_ITS ---
Operative Report Date of procedure: August 07, 2020 Pre-op Diagnosis: Status post I&D left posterior lateral chest wall subscapular abscess Post-op diagnosis: same Procedure Done: Debridement left lateral posterior chest wall wound with reapp lication of wound VAC Pathology: none sent Surgeon: Vinayak Luu Anesthesia: General (Laryngeal mask) Condition: stable Disposition: PACU Brief History: Mr. 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 He is now being returned operating room theater for further debridement as necessary and reapplication of the new wound VAC dressing. Procedure: Mr. Johnson was taken operating room theater carefully positioned supine underwent general anesthesia via laryngeal mask. He was carefully turned to the right lateral cubitus position over protective padding and secured. Old wound VAC dressing was removed and the entire wound was then prepped and draped. There is substantial granulation tissue in the wound now. There was some devitalized areas posteriorly and in the subscapular region which underwent sharp debridement with Metzenbaum scissors. Mild bleeding. Easily controlled with cautery. Wound was irrigated with antibiotic solution. We then reapplied a new wound VAC dressing for dimensions as during the original surgery; 26 cm in length by 10 cm in width by 3 cm in depth. Mr. Johnson was returned to the supine position where he was awakened from anesthesia. He was then transferred over to the postoperative care unit. He will be scheduled for discharge to home once we have obtained a homebound wound VAC system.
--- NOTE | 2020-08-07 13:32 | PC.NURSE ---
administered tube feeding, 350ml jevity 1.2 and 120ml water.
--- NOTE | 2020-08-07 13:37 | ANE.PACU2 ---
Inpatient post-anesthesia follow up: Airway intact: Yes Vital signs: Temperature 97.4 F Pulse Rate [Monito r] 82 Pulse Rate 59 Respiratory Rate 17 Blood Pressure [Le ft Arm] 116/69 Blood Pressure 108/60 Pulse Oximetry 95 Oxygen Delivery Me thod Room Air Oxygen Flow Rate 6 Fraction of Inspir ed Oxygen Hydration adequate: Yes Nausea and vomiting: No Pain level: 2 Mental status: Baseline
--- NOTE | 2020-08-07 13:57 | SUR.PHASEI ---
1253 PT AWAKES EASILY WITH GOOD RESP NOTED ON RA, VSS LT AXILLARY WOUND VAC IN PLACE AND WORKING, PT ORIENTED TO PERSON PLACE , TOWN, PT SLEEPS IF NOT DISTURBED PT TO FLOOR PER CART 1205 PT MOVES SELF TO BED WITH MINIMAL ASSIST NOTED.
[2020-08-07] MEDS: fluconazole premix 100 MG in empty flexible container 1 EACH 50 MG IV (14:21)
--- NOTE | 2020-08-07 18:16 | PC.RESP ---
SMOKING CESSATION INFORMATION SENT TO PATIENT.
--- NOTE | 2020-08-07 18:25 | PC.NURSE ---
notified Dr Luu that patient's home wound vac has arrived.
[2020-08-07] MEDS: fentaNYL 12 mcg Patch 1 PATCH TRANSDERMA (21:05)
[2020-08-07] MEDS: oxyCODONE-APAP 5-325 mg Tablet 1 TAB PO (21:07)
[2020-08-08] VITALS (7 sets, daily range): BP systolic 94–113; BP diastolic 59–71; PULSE 82–99; RESP 14–18; TEMP 36.2–36.9; O2SAT 92–94
[2020-08-08] MEDS: lactated ringers 1,000 ML 125 ML IV ×3 (01:27→17:10)
[2020-08-08] MEDS: multivitamin therapeutic Tablet 1 TAB PO (05:47)
[2020-08-08] MEDS: aspirin 325 mg Tablet PO (05:47)
[2020-08-08] MEDS: allopurinol 300 mg Tablet PO (05:47)
--- NOTE | 2020-08-08 06:45 | P.DS_ITS ---
Discharge Providers Date of Admission: 08/04/20 16:29 Date of Discharge: August 08, 2020 Attending Provider at Admission: Vinayak Luu MD Attending Provider at Discharge: Vinayak Luu MD Primary Care Provider: BAILEY Ramon Diagnoses at Discharge Discharge Diagnosis (1) Abscess or cellulitis of back: Status: Acute Reason for Visit Reason for Visit: ABCESS ON LEFT SHOULDER AFTER SURGERY Hospital Course Hospital Course Mr. Johnson is a 69-year-old gentleman who was admitted upon, he had a large to the emergency department on August 04 with a large left lateral posterior chest wall abscess. He is status post anterior glossectomy and segmental mandibular resection with bilateral modified radical neck dissection, tracheostomy and immediate reconstruction of the oral mandible defect in the left chimeric scapular tip free flap and myocutaneous latissimus dorsi free flap with oral vestibuloplasty. This was all performed on June 02 at [facility]. Upon presentation, he had a large tear erupting abscess what appeared to be the area for harvesting of latissimus dorsi free flap. He was taken operating room underwent incision and drainage of a large abscess cavity with subsequent R irrigation, debridement, and placement of wound VAC. Initially received vancomycin. 3 days later, on August 07, he was returned to operating room theater for reexploration, further debridement, and placement of a second wound VAC. He has done well. There was noted upon reexploration to be early and consistent granulation tissue throughout this large wound. Discharge was delayed while we are awaiting a home wound VAC system. He will be discharged home today with home health services. Wound VAC is in position. We will confirm follow-up appointment at the [facility], at their request. They have been consulted by phone at the time of his presentation to the emergency department and stated they had no available beds. If there is substantial delay in this appointment, we will have him schedule a follow-up with wound care services here at [facility]. At the time of discharge, he is in stable condition. Physical Exam Chest: OTHER: Wound VAC is in position on the left lateral-posterior chest wall and is functioning well. Resp: COMMON NORMALS: normal respiratory effort, No use of accessory muscles, clear to auscultation bilaterally and percussion normal EFFORT & INSPECTION: Yes able to speak in complete sentences and Yes symmetric chest movement AUSCULTATION: clear to auscultation bilaterally PERCUSSION: percussion normal Cardio: COMMON NORMALS: regular rate, regular rhythm, S1 normal heart sound present and No murmurs present (Cardio) RATE: regular rate RHYTHM: regular rhythm HEART SOUNDS: S1 normal heart sound present GI: COMMON NORMALS: Normal to inspection, nondistended, normoactive bowel sounds present OTHER: PEG tube is in position and functioning well. Extremity: COMMON NORMALS: no clubbing, cyanosis or edema Discharge Data 2 Data Completed and Pending: Completed Studies During Hospitalization Category Date Time Status CT chest w con* 7 [id number] Urgent Cat Scan 08/04/20 12:25 Completed Pending at discharge Category Date Time Status Blood Culture Rou lisa Lab 08/04/20 12:50 Results Blood Culture Sta t Lab 08/04/20 12:35 Results Tissue Culture an d Gram Stain Routi ne Lab 08/04/20 18:33 Results Vitals: Last Vital Signs Temp 98.2 F 08/08/20 03:38 Pulse 96 08/08/20 03:38 Resp 17 08/08/20 03:38 BP 102/68 08/08/20 03:38 Pulse Ox 92 08/08/20 03:38 Discharge Plan Discharge Patient Disposition: Home Health Service Condition: Stable Prescriptions: Continued magnesium oxide 400 mg magnesium capsule 400 mg PO BID Qty: 60 RF: 1 multivitamin [Daily Multi-Vitamin] Tablet 1 tab PO QAM Qty: 30 RF: 1 thiamine HCl (vitamin B1) 100 mg tablet 100 mg PO DAILY Qty: 30 RF: 1 (DME) C-PAP See Rx Instructions .Route .MEDSUPPLY Qty: 1 RF: 0 senna 8.6 mg tablet 8.5 mg PO DAILY RF: 0 aspirin 325 mg Tablet 325 mg PO QAM RF: 0 melatonin 3 mg tablet 3 mg PO BEDTIME RF: 0 oxycodone-acetaminophen 5-325 mg tablet 1 tab PO Q6H PRN (Reason: Pain) RF: 0 famotidine 20 mg tablet 20 mg PO DAILY RF: 0 cyanocobalamin (vitamin B-12) 500 mcg tablet 1,000 mcg PO DAILY RF: 0 propranolol 20 mg tablet 20 mg PO BID RF: 0 fentanyl 12 mcg/hr patch 72 hour 12 mcg transdermal Q72H RF: 0 gabapentin 600 mg tablet 600 mg PO TID RF: 0 spironolactone 25 mg tablet 25 mg PO DAILY RF: 0 potassium chloride 20 mEq tablet,ER particles/crystals 10 meq PO BID RF: 0 folic acid 1 mg tablet 1 mg PO DAILY RF: 0 allopurinol 300 mg tablet 300 mg PO QAM RF: 0 carbidopa-levodopa 25-100 mg tablet 1 tab PO BID RF: 0 ketoconazole 2 % cream 1 applic topical BID RF: 0 Chantix Starting Month Box 0.5 mg (11)- 1 mg (42) tablets,dose pack See Rx Instructions PO PER PKG DIR RF: 0 Discharge Orders: Discharge Order (Routine); Ordered 08/08/20 Ordered By: Vinayak Luu Referrals: [facility] ([facility]) [Other] (A follow-up is requested with Dr Almonte. Appointments are made Friday-Friday 7:30am to 12:30pm.) WOUND [facility]ARE [facility], [Staff Physician] - 1-3 days Discharge Diet: Usual diet Discharge Activity: Resume usual activity Patient Instructions: Opioid Safety Discharge Attestations Time Spent in Discharge Care*: less than 30 min Specific Discharge Activities: educating patient, discussing with embedded case manager/social workers/dc planners, documenting/other paperwork and evaluating patient/reviewing data Status at Discharge: Cognitive status at discharge: cognitively intact , Functional status at discharge: independent ambulation Overall status at discharge: patient is back to baseline Quality Metrics Clinical Quality Measures During this hospital stay, did patient experience: None Coding Level of Care Code Acute Chg FW DC note Diagnoses Abscess or cellulitis of back
[2020-08-08] MEDS: pantoprazole 40 mg SDV IVP (09:07)
[2020-08-08] MEDS: famotidine 20 mg Tablet PO (09:07)
[2020-08-08] MEDS: propranolol 20 mg Tablet PO ×2 (09:07→17:09)
[2020-08-08] MEDS: magnesium oxide 400 mg tablet PO ×2 (09:07→17:09)
[2020-08-08] MEDS: potassium chloride ER 20 mEq Tablet 10 MEQ PO (09:07)
[2020-08-08] MEDS: carbidopa-levodopa 25-100mg Tablet 1 EACH PO ×2 (09:07→17:09)
[2020-08-08] MEDS: thiamine 100 mg Tablet PO (09:07)
[2020-08-08] MEDS: cyanocobalamin 1,000 mcg Tablet 1000 MCG PO (09:07)
[2020-08-08] MEDS: folic acid 1 mg Tablet PO (09:07)
[2020-08-08] MEDS: spironolactone 25 mg Tablet PO (09:07)
[2020-08-08] MEDS: sennosides 8.6 mg Tablet PO (09:07)
[2020-08-08] MEDS: gabapentin 300 mg Capsule 600 MG PO ×3 (09:07→20:51)
[2020-08-08] MEDS: fluconazole premix 100 MG in empty flexible container 1 EACH 50 MG IV (13:45)
--- NOTE | 2020-08-08 14:55 | PC.NURSE ---
Per case management, patient unable to be discharged today because home wound vac not available.
--- NOTE | 2020-08-08 16:44 | PC.NURSE ---
vd critical tissue culture, notified Dr Luu. Rcvd verbal order from Dr Luu for Bactrim DS 1 Tab PO BID and start now. and Place patient on contact isolation. headline writer put orders in.
[2020-08-08] MEDS: potassium chloride ER 10 mEq Tablet PO (17:09)
[2020-08-08] MEDS: sulfamethoxazole-trimeth DS 160-800 mg Tablet 1 TAB PO (17:10)
[2020-08-08] MEDS: ketoconazole Cream 15 gm 1 APPLIC TOPICAL (17:11)
[2020-08-08] MEDS: oxyCODONE-APAP 5-325 mg Tablet 1 TAB PO (20:50)
[2020-08-09] VITALS: BP 101/65; PULSE 82; RESP 16; TEMP 37; O2SAT 93
[2020-08-09] MEDS: lactated ringers 1,000 ML 125 ML IV ×2 (01:08→08:23)
[2020-08-09 04:00] VITALS: BP 94/57; PULSE 82; RESP 16; TEMP 36.7; O2SAT 91
[2020-08-09] MEDS: multivitamin therapeutic Tablet 1 TAB PO (05:46)
[2020-08-09] MEDS: aspirin 325 mg Tablet PO (05:46)
[2020-08-09] MEDS: allopurinol 300 mg Tablet PO (05:46)
[2020-08-09 08:02] VITALS: BP 105/67; PULSE 82; RESP 15; TEMP 36.9; O2SAT 92
[2020-08-09] MEDS: folic acid 1 mg Tablet PO (08:25)
[2020-08-09] MEDS: spironolactone 25 mg Tablet PO (08:25)
[2020-08-09] MEDS: sulfamethoxazole-trimeth DS 160-800 mg Tablet 1 TAB PO (08:25)
[2020-08-09] MEDS: potassium chloride ER 10 mEq Tablet PO (08:25)
[2020-08-09] MEDS: famotidine 20 mg Tablet PO (08:25)
[2020-08-09] MEDS: magnesium oxide 400 mg tablet PO (08:25)
[2020-08-09] MEDS: gabapentin 300 mg Capsule 600 MG PO (08:25)
[2020-08-09] MEDS: propranolol 20 mg Tablet PO (08:25)
[2020-08-09] MEDS: thiamine 100 mg Tablet PO (08:25)
[2020-08-09] MEDS: carbidopa-levodopa 25-100mg Tablet 1 EACH PO (08:25)
[2020-08-09] MEDS: sennosides 8.6 mg Tablet PO (08:25)
[2020-08-09] MEDS: pantoprazole DR 40 mg Tablet PO (08:25)
[2020-08-09] MEDS: cyanocobalamin 1,000 mcg Tablet 1000 MCG PO (08:25)
[2020-08-09] MEDS: ketoconazole Cream 15 gm 1 APPLIC TOPICAL (08:26)
--- NOTE | 2020-08-09 09:36 | PC.SOCIAL ---
IMM Updated Updated pt on Pg 2 IMM. No questions voiced. Provided pt a copy. Signed, dated, & timed copy in chart.
[2020-08-09 11:25] VITALS: BP 100/63; PULSE 77; RESP 16; TEMP 36.8; O2SAT 93
[2020-08-09 11:42] VITALS: RESP 16
[2020-08-09] MEDS: oxyCODONE-APAP 5-325 mg Tablet 1 TAB PO (11:42)
[2020-08-09 13:12] VITALS: BP 105/67; PULSE 82; RESP 16; TEMP 36.8; O2SAT 92
== END 2020-08-09 13:16 | disposition home health service (06) | DRG 857 ==
LOC: ER 14:53 → MEDSURG 17:37 → ICU 19:25 → MEDSURG 08-05 12:04
PROVIDERS: Admitting Provider Thoracic Surgery (Cardiothoracic Vascular Surgery); Emergency Provider Physician Assistant; PCP Nurse Practitioner Family; Visit Provider Thoracic Surgery (Cardiothoracic Vascular Surgery)
PROC: 0JB70ZZ Excision of Back Subcutaneous Tissue and Fascia, Open Approach (ICD-10-PCS; principal; 2020-08-04 17:00)
PROC: 0JB70ZZ Excision of Back Subcutaneous Tissue and Fascia, Open Approach (ICD-10-PCS; 2020-08-04 17:00)
DX: T81.42XA Infection following a procedure, deep incisional surgical site, initial encounter (principal); C77.0 Secondary and unspecified malignant neoplasm of lymph nodes of head, face and neck; L02.213 Cutaneous abscess of chest wall; C04.9 Malignant neoplasm of floor of mouth, unspecified; Z93.1 Gastrostomy status; G62.1 Alcoholic polyneuropathy; F10.11 Alcohol abuse, in remission; K52.9 Noninfective gastroenteritis and colitis, unspecified; N18.30 Chronic kidney disease, stage 3 unspecified; Z86.718 Personal history of other venous thrombosis and embolism; G25.0 Essential tremor; B18.2 Chronic viral hepatitis C; I73.9 Peripheral vascular disease, unspecified; K86.89 Other specified diseases of pancreas; E53.9 Vitamin B deficiency, unspecified; E55.9 Vitamin D deficiency, unspecified; Z90.81 Acquired absence of spleen; Z79.891 Long term (current) use of opiate analgesic; Z93.0 Tracheostomy status; F17.210 Nicotine dependence, cigarettes, uncomplicated; Y83.8 Other surgical procedures as the cause of abnormal reaction of the patient, or of later complication, without mention of misadventure at the time of the procedure
CPT/HCPCS: 36415; 71260; 80048; 80053; 80202; 83605; 85025; 87040; 87070; 87077; 87106; 87176; 87186; 87205; 94664; 96365; 96375; 99205; 99285; C9113; J1450; J1956; J2250; J2370; J2704; J3010; J3370; J3490; J7050; Q9967

== ENCOUNTER 2020-08-14 13:11 | Outpatient (CLI) | payer MEDICARE, MEDICAID, SELFPAY | END 2020-08-14 13:12 | disposition home or self-care (01) | LOC: WOUND 13:14 | PROVIDERS: PCP Nurse Practitioner Family; Visit Provider Nurse Practitioner Family | DX: T81.89XA Other complications of procedures, not elsewhere classified, initial encounter (principal); Y83.8 Other surgical procedures as the cause of abnormal reaction of the patient, or of later complication, without mention of misadventure at the time of the procedure; B19.20 Unspecified viral hepatitis C without hepatic coma | CPT/HCPCS: 11042; 11045; 87522; G0463 ==

== ENCOUNTER 2020-08-21 14:05 | Outpatient (CLI) | payer MEDICARE, MEDICAID, SELFPAY | END 2020-08-21 14:06 | disposition home or self-care (01) | LOC: WOUND 14:08 | PROVIDERS: PCP Nurse Practitioner Family; Visit Provider Nurse Practitioner Family | DX: T81.89XA Other complications of procedures, not elsewhere classified, initial encounter (principal); Y83.8 Other surgical procedures as the cause of abnormal reaction of the patient, or of later complication, without mention of misadventure at the time of the procedure | CPT/HCPCS: 11042; 11045; 97606 ==

== ENCOUNTER 2020-08-30 10:58 | Outpatient (CLI) | payer MEDICARE, MEDICAID, SELFPAY | END 2020-08-30 10:59 | disposition home or self-care (01) | LOC: WOUND 11:00 | PROVIDERS: PCP Nurse Practitioner Family; Visit Provider Nurse Practitioner Family | DX: T81.89XA Other complications of procedures, not elsewhere classified, initial encounter (principal); Y83.8 Other surgical procedures as the cause of abnormal reaction of the patient, or of later complication, without mention of misadventure at the time of the procedure | CPT/HCPCS: 11042; 11045; 97606 ==

== ENCOUNTER 2020-09-11 15:11 | Outpatient (CLI) | payer MEDICARE, MEDICAID, SELFPAY | END 2020-09-11 15:12 | disposition home or self-care (01) | LOC: WOUND 15:13 | PROVIDERS: PCP Nurse Practitioner Family; Visit Provider Thoracic Surgery (Cardiothoracic Vascular Surgery) | DX: T81.89XA Other complications of procedures, not elsewhere classified, initial encounter (principal); Y83.8 Other surgical procedures as the cause of abnormal reaction of the patient, or of later complication, without mention of misadventure at the time of the procedure | CPT/HCPCS: 11042; 11045 ==

== ENCOUNTER 2020-09-18 13:57 | Outpatient (CLI) | payer MEDICARE, MEDICAID, SELFPAY | END 2020-09-18 13:58 | disposition home or self-care (01) | LOC: WOUND 13:58 | PROVIDERS: PCP Nurse Practitioner Family; Visit Provider Nurse Practitioner Family | DX: T81.89XA Other complications of procedures, not elsewhere classified, initial encounter (principal); Y83.8 Other surgical procedures as the cause of abnormal reaction of the patient, or of later complication, without mention of misadventure at the time of the procedure | CPT/HCPCS: 11042; 11045 ==

== ENCOUNTER 2020-09-22 05:51 | Outpatient (RCR) | payer MEDICARE, MEDICAID, SELFPAY ==
--- NOTE | 2020-09-13 | CT_ITS ---
Radiation Therapy Planning CT images; total exam DLP: 544.47 mGy-cm MTDD
--- NOTE | 2020-09-13 13:31 | ONCRAD EPV_ITS ---
Radiation Oncology Established Patient Visit Patient: Alex Rodríguez [id number] : 1950> Age: 69> Sex: Male> Dictated by: Dr. 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 Current History: Mr. Johnson returns. He saw Dr. Herrera August 02 and at that time plans were to proceed on with postoperative radiation for 6 weeks. However the patient developed a large complex abscess in the donor site area on his back. He required surgical management and has had a wound VAC in place for approximately the past month. That was removed yesterday and he was told he could return for radiation planning. In terms of the head neck area, he has been doing well. He is able to take a liquid and soft diet by mouth without difficulty. He has not used his feeding tube for the last few days. The swelling in the right jaw and facial area has regressed. The patient is having very little discomfort in the surgical area. His speech is quite good and he is easy to understand. He has not had any recent pulmonary symptoms. The donor site is now bandaged. He states that he nurses coming by daily to change the dressing for him. Current Medications: Allopurinol, carbidopa-Levodopa, chlorhexidine Gluconate, duragesic-12, famotidine, folic Acid, gabapentin, gNP Vitamin B-1, gNP Vitamin B-12, melatonin, oxyCODONE-Acetaminophen, propranolol HCl, senna Laxative. Allergies: Penicillin G. Current Complaints / Review of Systems: . Vital Signs: Performed on 09/13/2020 10:47 AM BMI - 21.955 kg/m2, Height - 74.00 in, Weight - 171.0 lbs, Temperature - 98.2 f, Pulse - 68, Respiration - 18, O2 Sat - 99 %, Pain - 4 and BP - 93/ 58 mm(hg)(/low). Physical Exam: Alert oriented no distress. As noted above his speech is very good in spite of his tongue being sutured to the floor of mouth. Exam of the oral cavity reveals that he is edentulous. There is moderate edema of the tongue. There are no surface lesions of the buccal mucosa or the tongue. Palpation of the tongue reveals no induration or nodularity. There were oral oropharynx is clear. He has moderate edema of the right upper anterior neck. On palpation the edema is soft and without any induration or nodularity. No lymphadenopathy detected in the neck. Surgical incision in the neck area is well-healed. Performance Status: 2 - Ambulatory/capable of all self-care, unable to perform any work activities. Up and about more than 50% of waking hours. (ECOG) Lab: None pending. Pathology: Primary, c04.9 - malignant neoplasm of floor of mouth, unspecified, Diagnosed 04/17/2020 (active) stage nella, t4a, pn0, m0. Imaging: None. Impression: Mr. Johnson is ready to proceed with postoperative radiation. I discussed the recommended course of treatment over 6 weeks. I discussed the acute side effects, particularly mucositis, altered taste, xerostomia, and swelling in the oral cavity and neck. I told him nutrition may become difficult by mouth and that he may need to resume use of his feeding tube at some point during treatment. I discussed the timing of resolution of side effects and particularly pointed out that loss of taste and dry mouth can be slow to improve. Mr. Johnson was under the impression that additional surgery is planned when he returns to [facility] in late September. In reviewing the notes from [facility], it iappeared that he is returning for routine follow-up with no specific procedures planned. The patient's mother was present in the waiting room. We had her come in and she also is under the impression that he is returning for routine follow-up and no surgical procedure is planned at that time. I told the patient that we need to proceed on with radiation because we are well behind the recommended schedule for proceeding with postoperative radiation. He gave the matter some thought and decided to proceed. We will simulate today. Signed by: 09/13/2020 1:30:41 PM <<Signature on File>> Time spent with patient: CPT Code: CPT Code:
--- NOTE | 2020-09-20 14:04 | ONCRAD TMN_ITS ---
Radiation Oncology Weekly Treatment Management Patient: Roderick Johnson MR#: [id number] : 1950> Attending Physician: Dr. 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 ID: [id number], Energy: 6X, Dose/Fx (cGy): 200, #Fx: , Dose Correction (cGy): 0, Total Dose (cGy): 200, Start Date: 09/20/2020, Elapsed Days: 0 Reason for visit: The patient is being seen today as part of their regularly scheduled weekly on treatment visits to assess for acute toxicities from radiotherapy. Review of Systems: Mr. Johnson had his first treatment today. There were no positioning or mask issues. He tolerated the treatment well. I checked the set up at the treatment console before he was treated and the set up looked very good. His wound VAC on the donor site in the area of the scapula has been put back on. Neither the patient nor his mother could explain exactly why that decision was made. He is not having any trouble with it and it is not affecting his treatment positioning. The patient states that he continues to take nutrition by mouth. He states that his fluid intake is very good. The graft in his mouth does not seem to affect his swallowing at all. Vital Signs: Performed on 09/20/2020 1:20 PM Height - 74.00 in, Temperature - 98.0 f (low), Pulse - 68 /min, Respiration - 17 /min, O2 Sat - 98 %, Pain - 4 and BP - 94/ 60 mm(hg)(/low). Physical Exam: Alert and oriented. No acute distress. He has a slightly low blood pressure but is not symptomatic. Neck exam reveals the swelling from his surgery to be stable to slightly improved. In the oral cavity has no visible lesions. No yeast or viral ulcerations seen. Imaging: Radiation therapy imaging related to accurate target localization (i.e. KV, MV and CBCT) was reviewed. Appropriate changes, if any, were made to ensure treatment accuracy. Plan: Signed by: Dr. Deepak Del Valle 09/20/2020 2:03:14 PM
== END 2020-09-23 23:59 | disposition home or self-care (01) ==
LOC: ONCMED 05:51
PROVIDERS: PCP Nurse Practitioner Family; Visit Provider Specialist
DX: Z51.0 Encounter for antineoplastic radiation therapy (principal); C04.9 Malignant neoplasm of floor of mouth, unspecified; Z79.899 Other long term (current) drug therapy
CPT/HCPCS: 77300; 77301; 77334; 77338; 77386; 99215

== ENCOUNTER 2020-09-25 14:17 | Outpatient (CLI) | payer MEDICARE, MEDICAID, SELFPAY | END 2020-09-25 14:18 | disposition home or self-care (01) | LOC: WOUND 14:18 | PROVIDERS: PCP Nurse Practitioner Family; Visit Provider Thoracic Surgery (Cardiothoracic Vascular Surgery) | DX: T81.89XA Other complications of procedures, not elsewhere classified, initial encounter (principal); Y83.8 Other surgical procedures as the cause of abnormal reaction of the patient, or of later complication, without mention of misadventure at the time of the procedure; Z87.891 Personal history of nicotine dependence | CPT/HCPCS: 11043; 11046 ==

== ENCOUNTER 2020-10-02 14:10 | Outpatient (CLI) | payer MEDICARE, MEDICAID, SELFPAY | END 2020-10-02 14:11 | disposition home or self-care (01) | LOC: WOUND 14:11 | PROVIDERS: PCP Nurse Practitioner Family; Visit Provider Nurse Practitioner Family | DX: T81.89XA Other complications of procedures, not elsewhere classified, initial encounter (principal); Y83.8 Other surgical procedures as the cause of abnormal reaction of the patient, or of later complication, without mention of misadventure at the time of the procedure; Z87.891 Personal history of nicotine dependence | CPT/HCPCS: G0463 ==

== ENCOUNTER 2020-10-05 05:41 | Outpatient (RCR) | payer MEDICARE, MEDICAID, SELFPAY ==
--- NOTE | 2020-09-26 15:27 | ONCRAD TMN_ITS ---
Radiation Oncology Treatment Management Note Patient Name: Marcos Johnson Date of : 1950 Date of Service: 09/26/2020 Attending Physician: Clemente Herrera M.D. 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 A composite resection of the anterior floor mouth with anterior glossectomy and segmental mandibular resection with bilateral modified radical neck dissection and tracheostomy was performed on May 30, 2020. An immediate reconstruction of the oromandibular defect with a left chimeric scapular tip free flap and myocutaneous latissimus dorsi free flap with an oral vestibuloplasty was completed on June 02, 2020. The pathology report confirmed a 2.5 cm moderately differentiated squamous cell carcinoma invading the mandible (DOI was 1.6 cm). All surgical margins were. A total of 93 lymph nodes were harvested without evidence of metastatic disease. The patient has received 8 Gy of a prescribed 66 [place] with an intensity modulated radiotherapy plan utilizing a step and shoot treatment technique. Upon review of systems, he denied any complaints related to radiotherapy. On physical examination, the patient weighed 179 lbs. His temperature was 97.8 ???F with a blood pressure of 129/76 mmHg. His pulse was 67 bpm and the respiratory rate was 20. There was no erythema within the treatment ramirez. Continue post-operative head and neck radiotherapy as prescribed. I will refill the Duragesic patch (12 mcg/hr). Signed by: Dr. Clemente Herrera 09/26/2020 3:26:24 PM
--- NOTE | 2020-10-03 14:45 | ONCRAD TMN_ITS ---
Radiation Oncology Treatment Management Note Patient Name: Marcos Johnson Date of : 1950 Date of Service: 10/03/2020 Attending Physician: Clemente Herrera M.D. 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 A composite resection of the anterior floor mouth with anterior glossectomy and segmental mandibular resection with bilateral modified radical neck dissection and tracheostomy was performed on May 30, 2020. An immediate reconstruction of the oromandibular defect with a left chimeric scapular tip free flap and myocutaneous latissimus dorsi free flap with an oral vestibuloplasty was completed on June 02, 2020. The pathology report confirmed a 2.5 cm moderately differentiated squamous cell carcinoma invading the mandible (DOI was 1.6 cm). All surgical margins were. A total of 93 lymph nodes were harvested without evidence of metastatic disease. The patient has received 18 Gy of a prescribed 66 [place] with an intensity modulated radiotherapy plan utilizing a step and shoot treatment technique. Upon review of systems, he denied any complaints related to radiotherapy. On physical examination, the patient weighed 166 lbs. His temperature was 97.4 ???F with a blood pressure of 109/67 mmHg. His pulse was 68 bpm and the respiratory rate was 18. There was no erythema within the treatment ramirez. Continue post-operative head and neck radiotherapy as planned. Signed by: Dr. Clemente Herrera 10/03/2020 2:44:29 PM
--- NOTE | 2020-10-24 14:53 | ONCRAD TMN_ITS ---
Radiation Oncology Weekly Treatment Management Patient: Roderick Johnson MR#: [id number] : 1950> Attending Physician: Dr. Deepak Del Valle Date of Service: 10/24/2020 Referring Physician(s) : Diagnosis: C04.9 - Malignant neoplasm of floor of mouth, unspecified, Diagnosed 04/17/2020 (Active) Stage GINO, T4a, pN0, M0 Radiotherapy to date: Course: Neck 2020, Treatment Site: [id number] 2020, Ref. ID: [id number], Energy: 6X, Dose/Fx (cGy): 200, #Fx: , Dose Correction (cGy): 0, Total Dose (cGy): 4,800, Start Date: 09/20/2020, Elapsed Days: 34 Reason for visit: The patient is being seen today as part of their regularly scheduled weekly on treatment visits to assess for acute toxicities from radiotherapy. Review of Systems: Mr. Johnson has 6 treatments to go. He is losing weight in spite of having a PEG tube. He has been having trouble with all preparations including Osmolite, Jevity, and Nutren, in that they cause diarrhea. He has been drinking Gatorade and Pedialyte by mouth. Also he takes some Ensure by mouth, but I believe it has produced diarrhea as well. His pain in the oral cavity is moderate and does not seem to be a great problem for him. He is very dry. Taste is significantly altered as well. His swallowing mechanism seems to be intact and as stated, he takes fluids without difficulty. I encouraged him to try soft solids as well. Vital Signs: Performed on 10/24/2020 2:01 PM BMI - 19.67 kg/m2, Height - 74.00 in, Weight - 153.2 lbs, Temperature - 97.1 f, Pulse - 74 /min, Respiration - 18 /min, O2 Sat - 99 %, Pain - 8 and BP - 116/ 72 mm(hg). Physical Exam: Alert, oriented, no acute distress. He appears chronically ill. He has hyperpigmentation and dry desquamation over most of his neck. He does not have any areas of severe skin reaction. In the oral cavity he has moderate mucositis of the tongue and anterior floor of floor of mouth area. I do not see any evidence of yeast or viral ulcerations. I do not palpate any lymphadenopathy in the neck. Imaging: Radiation therapy imaging related to accurate target localization (i.e. KV, MV and CBCT) was reviewed. Appropriate changes, if any, were made to ensure treatment accuracy. Plan: Continue his radiation treatment as planned. I encouraged him to take 1-4 Imodium A-D per day to control the diarrhea, so that hopefully he can get more nutrition through the feeding tube. I encouraged him to also increase his intake by mouth. He feels that he will be able to do so. Signed by: Dr. Deepak Del Valle 10/24/2020 2:52:20 PM
== END 2020-10-05 23:59 | disposition home or self-care (01) ==
LOC: ONCMED 05:41
PROVIDERS: PCP Nurse Practitioner Family; Visit Provider Radiology Radiation Oncology
DX: Z51.0 Encounter for antineoplastic radiation therapy (principal); C04.9 Malignant neoplasm of floor of mouth, unspecified; Z79.899 Other long term (current) drug therapy
CPT/HCPCS: 77336; 77386

== ENCOUNTER 2020-10-06 09:20 | Outpatient (CLI) | payer MEDICARE, MEDICAID, SELFPAY ==
--- NOTE | 2020-10-06 09:31 | CT_ITS ---
WS: [id number] CT scan of the chest with IV contrast, additional two-dimensional coronal and sagittal reconstruction was performed. 10/06/2020 Clinical Data: FLOOR OF MOUTH SQUAMOUS CELL CARCINOMA Comparison: CT chest, 08/04/2020 DLP: 639.[address] scans at [facility] use at least one of these dose optimization techniques: automat ed exposure control; mA and/or kV adjustment per patient size (includes targeted exams where dose is matched to clinical indication); or iterative reconstruction. Findings: No nodules, masses or effusions are seen. The heart size is normal with no pericardial effusion. No p neumonia or pneumothorax is seen. There is coronary artery calcification. There is elevation of left diaphragm unchanged. The pulmonary arterial system and thoracic aorta demonstrate no abnormalities or dilatations. There is no axillary or significant mediastinal adenopathy. The fluid collection inferior to the left scapula is no longer present. There is irregularity of the inferior left scapula border probably denoting the patient's bone graft donor site. The upper abdomen demonstrates the PEG tube in the stomach. There are multiple splenules in the left upper quadrant. The left kidney is absent. CT/CT chest w con* [id number] Impression: 1. Left lateral fluid collection no longer present. 2. Elevation of the left diaphragm unchanged. 3. Negative for metastatic disease to the lungs. 4. PEG tube in good position.
--- NOTE | 2020-10-06 09:31 | CT_ITS ---
WS: [id number] CT scan of the neck. Additional two-dimensional coronal and sagittal reconstruction was performed. Clinical Data: FLOOR OF MOUTH SQUAMOUS CELL CARCINOMA Comparison: CTA of the head and neck, 04/28/2020. DLP: 1172.[address] scans at [facility] use at least one of these dose optimization techniques: automat ed exposure control; mA and/or kV adjustment per patient size (includes targeted exams where dose is matched to clinical indication); or iterative reconstruction. Findings: No lymphadenopathy is noted. The salivary glands are unremarkable. There has been resection of the an terior aspect of the mandible with insertion of a bone graft supported with plate and screws. Anterio r to the mandible there is a area of low density which may represent fat. No fluid fluid levels are s een. There is swelling on both sides of the neck, probably secondary to the recent therapy. There is no abscess. Numerous surgical clips are noted on both sides of the neck inferior to the mandible exte nding to the level of the lower one third of the neck. No distinct soft tissue masses are seen. There is no prevertebral soft tissue swelling. The larynx is symmetric. The thyroid gland shows normal enh ancement. The floor of the mouth and parapharyngeal spaces are normal. The oral cavity is unremarkabl e. The carotid arteries bifurcate normally. There is calcification at both carotid bifurcations. The lacho tebral arteries are normal. The cervical spine demonstrates osteoarthritis and multilevel disc narrow ing. No bony metastatic disease is seen.. The lung apices show no abnormalities. The portions of the intracranial circulation which are seen demonstrate no abnormalities. There is minimal mucoperiosteal thickening of the right maxillary sinus. No erosion of the skull or skull base is seen. CT/CT neck w con* [id number] Impression: 1. Resection of the anterior aspect of the mandible with repair by a bone graft . 2. Soft tissue swelling on both sides of the neck. 3. Probable fat anterior to mandibular graft. 4. No definite tumor recurrence or metastatic disease is seen.
[2020-10-06 09:56] LABS: Blood Urea Nitrogen 10 mg/dL (8-23); Glomerular Filtration Rate 84.2 mL/min (90-130)
[2020-10-06] MEDS: iodixanol 320 mg/mL 100mL Btl IV ×2 (10:10→10:11)
== END 2020-10-06 09:21 | disposition home or self-care (01) ==
LOC: RADWPI 09:24
PROVIDERS: PCP Nurse Practitioner Family; Visit Provider Nurse Practitioner Family
DX: C04.9 Malignant neoplasm of floor of mouth, unspecified (principal); M79.89 Other specified soft tissue disorders
CPT/HCPCS: 70491; 71260; 82565; 84520; Q9967

== ENCOUNTER 2020-10-12 05:38 | Outpatient (RCR) | payer MEDICARE, MEDICAID, SELFPAY ==
--- NOTE | 2020-10-10 14:16 | ONCRAD TMN_ITS ---
Radiation Oncology Treatment Management Note Patient Name: Marcos Johnson Date of : 1950 Date of Service: 10/10/2020 Attending Physician: Clemente Herrera M.D. 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 A composite resection of the anterior floor mouth with anterior glossectomy and segmental mandibular resection with bilateral modified radical neck dissection and tracheostomy was performed on May 30, 2020. An immediate reconstruction of the oromandibular defect with a left chimeric scapular tip free flap and myocutaneous latissimus dorsi free flap with an oral vestibuloplasty was completed on June 02, 2020. The pathology report confirmed a 2.5 cm moderately differentiated squamous cell carcinoma invading the mandible (DOI was 1.6 cm). All surgical margins were negative. A total of 93 lymph nodes were harvested without evidence of metastatic disease. The patient has received 28 Gy of a prescribed 66 Coronado with an intensity modulated radiotherapy plan utilizing a step and shoot treatment technique. Upon review of systems, he reported thick secretions. On physical examination, the patient weighed 164 lbs. His temperature was 97.9 ???F with a blood pressure of 102/65 mmHg. His pulse was 72 bpm and the respiratory rate was 18. There was no erythema within the treatment ramirez. No mucositis present. Continue post-operative head and neck radiotherapy as prescribed. Signed by: Dr. Clemente Herrera 10/10/2020 2:14:48 PM
== END 2020-10-12 23:59 | disposition home or self-care (01) ==
LOC: ONCMED 05:38
PROVIDERS: PCP Nurse Practitioner Family; Visit Provider Radiology Radiation Oncology
DX: Z51.0 Encounter for antineoplastic radiation therapy (principal); C04.9 Malignant neoplasm of floor of mouth, unspecified; Z79.899 Other long term (current) drug therapy
CPT/HCPCS: 77014; 77336; 77386; 77427

== ENCOUNTER 2020-10-13 00:39 | Emergency (ER) | payer MEDICARE, MEDICAID, SELFPAY ==
[2020-10-13 00:42] VITALS: BMI 21.0
--- NOTE | 2020-10-13 00:53 | PC.NURSE ---
Bill in with pt at this time clean peg tube sit and attempting to replace pts peg tube.
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
[2020-10-13 01:28] VITALS: BP 105/64; PULSE 78; RESP 18; O2SAT 96
== END 2020-10-13 01:29 | disposition home or self-care (01) ==
PROVIDERS: Emergency Provider Nurse Practitioner Family; PCP Nurse Practitioner Family
DX: K94.23 Gastrostomy malfunction (principal); Z79.82 Long term (current) use of aspirin; N18.30 Chronic kidney disease, stage 3 unspecified; Z86.19 Personal history of other infectious and parasitic diseases; Z87.891 Personal history of nicotine dependence
CPT/HCPCS: 99281

== ENCOUNTER 2020-10-16 14:02 | Outpatient (CLI) | payer MEDICARE, MEDICAID, SELFPAY | END 2020-10-16 14:03 | disposition home or self-care (01) | LOC: WOUND 14:03 | PROVIDERS: PCP Nurse Practitioner Family; Visit Provider Thoracic Surgery (Cardiothoracic Vascular Surgery) | DX: I96 Gangrene, not elsewhere classified (principal); T81.89XA Other complications of procedures, not elsewhere classified, initial encounter; Y83.8 Other surgical procedures as the cause of abnormal reaction of the patient, or of later complication, without mention of misadventure at the time of the procedure; Z87.891 Personal history of nicotine dependence | CPT/HCPCS: 11042; 11045 ==

== ENCOUNTER 2020-10-23 13:59 | Outpatient (CLI) | payer MEDICARE, MEDICAID, SELFPAY | END 2020-10-23 14:00 | disposition home or self-care (01) | LOC: WOUND 14:07 | PROVIDERS: PCP Nurse Practitioner Family; Visit Provider Nurse Practitioner Family | DX: L98.422 Non-pressure chronic ulcer of back with fat layer exposed (principal); Z87.891 Personal history of nicotine dependence | CPT/HCPCS: 11042 ==

== ENCOUNTER 2020-10-24 05:47 | Outpatient (RCR) | payer MEDICARE, MEDICAID, SELFPAY ==
--- NOTE | 2020-10-17 14:36 | ONCRAD TMN_ITS ---
Radiation Oncology Treatment Management Note Patient Name: Marcos Johnson Date of : 1950 Date of Service: 10/17/2020 Attending Physician: Clemente Herrera M.D. 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 A composite resection of the anterior floor mouth with anterior glossectomy and segmental mandibular resection with bilateral modified radical neck dissection and tracheostomy was performed on May 30, 2020. An immediate reconstruction of the oromandibular defect with a left chimeric scapular tip free flap and myocutaneous latissimus dorsi free flap with an oral vestibuloplasty was completed on June 02, 2020. The pathology report confirmed a 2.5 cm moderately differentiated squamous cell carcinoma invading the mandible (DOI was 1.6 cm). All surgical margins were negative. A total of 93 lymph nodes were harvested without evidence of metastatic disease. The patient has received 38 Gy of a prescribed 66 [place] with an intensity modulated radiotherapy plan utilizing a step and shoot treatment technique. Upon review of systems, he reported continued thick secretions. On physical examination, the patient weighed 159 lbs. His temperature was 97.5 ???F with a blood pressure of 100/64 mmHg. His pulse was 78 bpm and the respiratory rate was 18. There was no erythema within the treatment ramirez. A grade I mucositis present. Continue post-operative head and neck radiotherapy as planned. I will request a dietary evaluation. Signed by: Dr. Clemente Herrera 10/17/2020 2:35:59 PM
--- NOTE | 2020-10-20 16:55 | PC.NUTR ---
Nutrition Note: Peg tube home feeding recommendation: Week 1 PEG tube using syringe: Jevity 1.5 x one 8 oz carton, BID, or total of 2 per day which will provide 710 kcal, 30 g protein, and 360 ml H2O with 30 ml H2O flush before and after TF. In addition, PO intake of Ensure Plus x three 8 ounce cartons which will provide 39 g protein, 1050 kcals Sample Day: Morning: Ensure Plus by mouth Mid- mornin carton Jevity 1.5, 30 ml H2O flushes before and after. Lunch: Ensure Plus by mouth Mid-afternoon: 1 carton Jevity 1.5, 30 ml H2O flushes before and after TF Evening: Ensure Plus by mouth Total daily kcals = 2470 Total daily grams protein = 99 grams protein Total daily H2O = 840 ml: 120 ml free water flushes plus 720 ml H2O in TF (patient reports PO fluid intake) Week 2 PEG tube using syringe: Jevity 1.5 x two 8 oz cartons, BID, or total of 4 per day which will provide 1420 kcal, 60 g protein, and 720 ml H2O with 30 ml H2O flush before and after TF. In addition, PO intake of Ensure Plus x three 8 ounce cartons which will provide 39 g protein, 1050 kcals Sample Day Morning: Ensure Plus by mouth Mid-mornin cartons Jevity 1.5, 30 ml H2O flushes before and after TF Lunch: Ensure Plus by mouth Mid-afternoon: 2 cartons Jevity 1.5, 30 ml H2O flushes before and after TF Evening: Ensure Plus by mouth Total daily kcals = 2470 Total daily grams protein = 99 grams protein Total daily H2O = 840 ml: 120 ml free water flushes plus 720 ml H2O in TF (patient reports PO fluid intake)
== END 2020-10-24 23:59 | disposition home or self-care (01) ==
LOC: ONCMED 05:47
PROVIDERS: PCP Nurse Practitioner Family; Visit Provider Specialist
DX: Z51.0 Encounter for antineoplastic radiation therapy (principal); C04.9 Malignant neoplasm of floor of mouth, unspecified; Z79.899 Other long term (current) drug therapy
CPT/HCPCS: 77014; 77336; 77386

== ENCOUNTER 2020-10-31 13:55 | Outpatient (CLI) | payer MEDICARE, MEDICAID, SELFPAY | END 2020-10-31 13:56 | disposition home or self-care (01) | LOC: WOUND 13:56 | PROVIDERS: PCP Nurse Practitioner Family; Visit Provider Emergency Medicine | DX: T81.89XA Other complications of procedures, not elsewhere classified, initial encounter (principal); Y83.8 Other surgical procedures as the cause of abnormal reaction of the patient, or of later complication, without mention of misadventure at the time of the procedure; Z87.891 Personal history of nicotine dependence | CPT/HCPCS: 11042; 87070; 87077; 87176; 87186; 87205; 99212 ==

== ENCOUNTER 2020-11-02 05:52 | Outpatient (RCR) | payer MEDICARE, MEDICAID, SELFPAY ==
--- NOTE | 2020-10-31 13:31 | ONCRAD TMN_ITS ---
Radiation Oncology Treatment Management Note Patient Name: Marcos Johnson Date of : 1950 Date of Service: 10/31/2020 Attending Physician: Clemente Herrera M.D. 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 A composite resection of the anterior floor mouth with anterior glossectomy and segmental mandibular resection with bilateral modified radical neck dissection and tracheostomy was performed on May 30, 2020. An immediate reconstruction of the oromandibular defect with a left chimeric scapular tip free flap and myocutaneous latissimus dorsi free flap with an oral vestibuloplasty was completed on June 02, 2020. The pathology report confirmed a 2.5 cm moderately differentiated squamous cell carcinoma invading the mandible (DOI was 1.6 cm). All surgical margins were negative. A total of 93 lymph nodes were harvested without evidence of metastatic disease. The patient has received 56 Gy of a prescribed 66 Coronado with an intensity modulated radiotherapy plan utilizing a step and shoot treatment technique. Upon review of systems, he denied any complaints except for thick secretions. On physical examination, the patient weighed 154 lbs. His temperature was 97.7 ???F with a blood pressure of 102/65 mmHg. His pulse was 68 bpm and the respiratory rate was 18. There was a grade II erythema within the treatment ramirez. A grade I mucositis present. Continue post-operative head and neck radiotherapy as prescribed. Signed by: Dr. Clemente Herrera 10/31/2020 1:30:32 PM
--- NOTE | 2020-11-02 13:46 | N.ONRD TS_ITS ---
Radiation OncologyTreatment Summary Patient Name: Marcos Johnson Date of : 1950 Date of Service: 11/02/2020 Attending Physician: Clemente Herrera M.D. 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 Head and neck radiation therapy was delivered between the dates of September 20, 2020 through November 02, 2020. A prescribed dose of 60 Gy was delivered in 30 fractions encompassing 44 elapsed days. The postoperative bed and bilateral cervical lymph node stations were treated utilizing an intensity modulated radiotherapy plan with a step and shoot treatment technique. The plan required ten gantry angles (0???, 30???, 60???, 80???, 120???, 170???, 220???, 260???, 300???, and 340???) replicating an arc. The collimator angle was 0???. The field sizes measured between 13.4 cm x 20.3 cm to 13.9 cm x 19.5 cm. The SSDs measured a minimum of 81.1 cm to a maximum of 95.7 cm. The ports delivered 416 MU, 255 MU, 240 MU, 249 MU, 214 MU, 220 MU, 144 MU, 182 MU, 343 MU, and 344 MU corresponding to the gantry angles described. Low energy photons were prescribed. All treatments were performed with the [employer] linear accelerator and an isocentric technique. The dose was calculated by Anisotropic Analytic Algorithm with the plan normalized to deliver 100% of the prescription dose to 95% of the planning target volume. The plan was approved by the [facility]. Signed by: Dr. Clemente Herrera 11/02/2020 1:46:39 PM
== END 2020-11-23 23:59 | disposition home or self-care (01) ==
LOC: ONCMED 05:52
PROVIDERS: PCP Nurse Practitioner Family; Visit Provider Radiology Radiation Oncology
DX: Z51.0 Encounter for antineoplastic radiation therapy (principal); C04.9 Malignant neoplasm of floor of mouth, unspecified; Z79.899 Other long term (current) drug therapy
CPT/HCPCS: 77014; 77336; 77386; 77387; 77427

== ENCOUNTER 2020-11-03 13:16 | Outpatient (CLI) | payer MEDICARE, MEDICAID, SELFPAY ==
--- NOTE | 2020-11-03 13:37 | XR_ITS ---
WS: [id number] Left scapula, 2 views, 11/03/2020 Clinical Data: DISRUPTION OF EXTERNAL OPERATION Comparison: Left shoulder, 10/22/2012. Findings: The left scapula appears intact without fracture. No erosion or destruction is seen. The proximal lef t humeral fracture has healed. The AC joint is normal. There are surgical clips in the left axilla. T here are surgical clips on the left side of the neck. The adjacent left clavicle and left ribs are un remarkable. XR/[place] [id number] Impression: Negative left scapula.
== END 2020-11-03 13:17 | disposition home or self-care (01) ==
LOC: RAD 13:31
PROVIDERS: PCP Nurse Practitioner Family; Visit Provider Emergency Medicine
DX: T81.31XA Disruption of external operation (surgical) wound, not elsewhere classified, initial encounter (principal)
CPT/HCPCS: 73010

== ENCOUNTER 2020-11-07 13:47 | Outpatient (CLI) | payer MEDICARE, MEDICAID, SELFPAY | END 2020-11-07 13:48 | disposition home or self-care (01) | LOC: WOUND 13:48 | PROVIDERS: PCP Nurse Practitioner Family; Visit Provider Thoracic Surgery (Cardiothoracic Vascular Surgery) | DX: T81.89XA Other complications of procedures, not elsewhere classified, initial encounter (principal); Y83.8 Other surgical procedures as the cause of abnormal reaction of the patient, or of later complication, without mention of misadventure at the time of the procedure; Z87.891 Personal history of nicotine dependence | CPT/HCPCS: 11042 ==

== ENCOUNTER 2020-11-14 13:20 | Outpatient (CLI) | payer MEDICARE, MEDICAID, SELFPAY | END 2020-11-14 13:21 | disposition home or self-care (01) | LOC: WOUND 13:23 | PROVIDERS: PCP Nurse Practitioner Family; Visit Provider Nurse Practitioner Family | DX: T81.89XA Other complications of procedures, not elsewhere classified, initial encounter (principal); Y83.8 Other surgical procedures as the cause of abnormal reaction of the patient, or of later complication, without mention of misadventure at the time of the procedure; Z87.891 Personal history of nicotine dependence | CPT/HCPCS: 11042 ==

== ENCOUNTER 2020-11-21 13:03 | Outpatient (CLI) | payer MEDICARE, MEDICAID, SELFPAY | END 2020-11-21 13:04 | disposition home or self-care (01) | LOC: WOUND 13:04 | PROVIDERS: PCP Nurse Practitioner Family; Visit Provider Thoracic Surgery (Cardiothoracic Vascular Surgery) | DX: T81.89XA Other complications of procedures, not elsewhere classified, initial encounter (principal); Y83.8 Other surgical procedures as the cause of abnormal reaction of the patient, or of later complication, without mention of misadventure at the time of the procedure; Z87.891 Personal history of nicotine dependence | CPT/HCPCS: 11042 ==

== ENCOUNTER 2020-11-28 13:55 | Outpatient (CLI) | payer MEDICARE, MEDICAID, SELFPAY | END 2020-11-28 13:56 | disposition home or self-care (01) | LOC: WOUND 13:56 | PROVIDERS: PCP Nurse Practitioner Family; Visit Provider Thoracic Surgery (Cardiothoracic Vascular Surgery) | DX: T81.89XA Other complications of procedures, not elsewhere classified, initial encounter (principal); Y83.8 Other surgical procedures as the cause of abnormal reaction of the patient, or of later complication, without mention of misadventure at the time of the procedure; Z87.891 Personal history of nicotine dependence | CPT/HCPCS: 11042 ==

== ENCOUNTER 2020-12-01 06:37 | Outpatient (RCR) | payer MEDICARE, MEDICAID, SELFPAY ==
--- NOTE | 2020-12-01 11:30 | ONCRAD EPV_ITS ---
Radiation Oncology Follow-Up Note Patient Name: Marcos Johnson Date of : 1950 Date of Service: 12/01/2020 Attending Physician: Clemente Herrera M.D. Marcos Johnson returned for a routinely scheduled follow-up appointment. 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 A composite resection of the anterior floor mouth with anterior glossectomy and segmental mandibular resection with bilateral modified radical neck dissection and tracheostomy was performed on May 30, 2020. An immediate reconstruction of the oromandibular defect with a left chimeric scapular tip free flap and myocutaneous latissimus dorsi free flap with an oral vestibuloplasty was completed on June 02, 2020. The pathology report confirmed a 2.5 cm moderately differentiated squamous cell carcinoma invading the mandible (DOI was 1.6 cm). All surgical margins were negative. A total of 93 lymph nodes were harvested without evidence of metastatic disease. Head and neck radiation therapy was delivered between the dates of September 20, 2020 through November 02, 2020. A prescribed dose of 60 Gy was delivered in 30 fractions encompassing 44 elapsed days. On review of systems, he did not report specific post-radiation complaints. On physical examination, his weight was 149 lbs and the temperature was 97.8 ???F. His blood pressure was 105/65 mmHg. The pulse was 96 bpm and the respiratory rate was 18 breaths per minute. Examination of the oral cavity failed to identify palpable or visible abnormalities. I did not identify any cervical lymphadenopathy. In summary, Mr. Johnson returned for a post-radiotherapy appointment. He has no significant sequelae from treatment. 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 Signed by: Dr. Clemente Herrera 12/01/2020 11:29:06 AM
== END 2020-12-24 23:59 | disposition home or self-care (01) ==
LOC: ONCMED 06:37
PROVIDERS: PCP Nurse Practitioner Family; Visit Provider Radiology Radiation Oncology
DX: C06.9 Malignant neoplasm of mouth, unspecified (principal); Z92.3 Personal history of irradiation
CPT/HCPCS: 99024

== ENCOUNTER 2020-12-05 15:31 | Outpatient (CLI) | payer MEDICARE, MEDICAID, SELFPAY | END 2020-12-05 15:32 | disposition home or self-care (01) | LOC: WOUND 15:32 | PROVIDERS: PCP Nurse Practitioner Family; Visit Provider Thoracic Surgery (Cardiothoracic Vascular Surgery) | DX: T81.89XA Other complications of procedures, not elsewhere classified, initial encounter (principal); Y83.8 Other surgical procedures as the cause of abnormal reaction of the patient, or of later complication, without mention of misadventure at the time of the procedure; Z87.891 Personal history of nicotine dependence | CPT/HCPCS: 11044; 87070; 87077; 87176; 87186; 87205 ==

== ENCOUNTER 2020-12-12 14:23 | Outpatient (CLI) | payer MEDICARE, MEDICAID, SELFPAY | END 2020-12-12 14:24 | disposition home or self-care (01) | LOC: WOUND 14:25 | PROVIDERS: PCP Nurse Practitioner Family; Visit Provider Thoracic Surgery (Cardiothoracic Vascular Surgery) | DX: T81.89XA Other complications of procedures, not elsewhere classified, initial encounter (principal); Y83.8 Other surgical procedures as the cause of abnormal reaction of the patient, or of later complication, without mention of misadventure at the time of the procedure; Z87.891 Personal history of nicotine dependence | CPT/HCPCS: 11044 ==

== ENCOUNTER 2020-12-19 13:50 | Outpatient (CLI) | payer MEDICARE, MEDICAID, SELFPAY | END 2020-12-19 13:51 | disposition home or self-care (01) | LOC: WOUND 13:52 | PROVIDERS: PCP Nurse Practitioner Family; Visit Provider Nurse Practitioner Family | DX: T81.89XA Other complications of procedures, not elsewhere classified, initial encounter (principal); Y83.8 Other surgical procedures as the cause of abnormal reaction of the patient, or of later complication, without mention of misadventure at the time of the procedure; Z87.891 Personal history of nicotine dependence | CPT/HCPCS: 11042 ==

== ENCOUNTER 2020-12-21 09:11 | Outpatient (CLI) | payer MEDICARE, MEDICAID, SELFPAY ==
--- NOTE | 2020-12-21 09:25 | NM_ITS ---
WS: [id number] THREE-PHASE BONE SCAN HISTORY: NON PRESSURE CHRONIC ULCER OF BACK NECROSIS OF BONE COMPARISON: LEFT scapula 11/03/2020 Patient is is injected with 24.9 mCi Tc99m HDP intravenously. Immediate angiographic phase imaging is performed over the area of concern. Static blood pool imaging also performed. Two-hour whole-body sc intigrams performed in anterior and posterior projections. Additional large field of view imaging sub mitted as necessary. On the angiographic and blood pool phase images there is no increased activity to suggest infectious or cellulitis process. On the two-hour delayed images there is a linear area of increased uptake invo lving the LEFT scapula along the resected border. If this resection was recently this is probably not related to osteomyelitis but postsurgical resection. No underlying soft tissue abnormality to sugges t this may be osteomyelitis. There is a focal area of intense uptake in the posterior RIGHT 10th rib which corresponds to a healed fracture seen on the recent CT of 10/06/2020. Only a single RIGHT kidney is identified. Soft tissue uptake is otherwise normal. NM/NM bone 3 phase [id number] IMPRESSION: 1. No cellulitis or evidence for osteomyelitis. 2. Thin linear area of increased uptake involving the resected surface of the LEFT scapula is probably postsurgical and not infectious. 3. Increased uptake within a healed RIGHT 10th rib fracture.
== END 2020-12-21 09:12 | disposition home or self-care (01) ==
LOC: RAD 09:15
PROVIDERS: PCP Nurse Practitioner Family; Visit Provider Thoracic Surgery (Cardiothoracic Vascular Surgery)
DX: T81.31XS Disruption of external operation (surgical) wound, not elsewhere classified, sequela (principal); L98.494 Non-pressure chronic ulcer of skin of other sites with necrosis of bone
CPT/HCPCS: 78315; A9561

== ENCOUNTER 2020-12-26 13:34 | Outpatient (CLI) | payer MEDICARE, MEDICAID, SELFPAY | END 2020-12-26 13:35 | disposition home or self-care (01) | LOC: WOUND 13:35 | PROVIDERS: PCP Nurse Practitioner Family; Visit Provider Thoracic Surgery (Cardiothoracic Vascular Surgery) | DX: T81.89XA Other complications of procedures, not elsewhere classified, initial encounter (principal); Y83.8 Other surgical procedures as the cause of abnormal reaction of the patient, or of later complication, without mention of misadventure at the time of the procedure; I73.9 Peripheral vascular disease, unspecified; N18.30 Chronic kidney disease, stage 3 unspecified; Z87.891 Personal history of nicotine dependence | CPT/HCPCS: 11042 ==

== ENCOUNTER 2021-01-02 13:14 | Outpatient (CLI) | payer MEDICARE, MEDICAID, SELFPAY | END 2021-01-02 13:15 | disposition home or self-care (01) | LOC: WOUND 13:15 | PROVIDERS: PCP Nurse Practitioner Family; Visit Provider Thoracic Surgery (Cardiothoracic Vascular Surgery) | DX: T81.89XA Other complications of procedures, not elsewhere classified, initial encounter (principal); Y83.8 Other surgical procedures as the cause of abnormal reaction of the patient, or of later complication, without mention of misadventure at the time of the procedure; Z87.891 Personal history of nicotine dependence | CPT/HCPCS: 11042 ==

== ENCOUNTER 2021-01-09 12:58 | Outpatient (CLI) | payer MEDICARE, MEDICAID, SELFPAY | END 2021-01-09 12:59 | disposition home or self-care (01) | LOC: WOUND 13:00 | PROVIDERS: PCP Nurse Practitioner Family; Visit Provider Psychiatry & Neurology Psychiatry | DX: T81.89XA Other complications of procedures, not elsewhere classified, initial encounter (principal); Y83.8 Other surgical procedures as the cause of abnormal reaction of the patient, or of later complication, without mention of misadventure at the time of the procedure; I87.2 Venous insufficiency (chronic) (peripheral); Z87.891 Personal history of nicotine dependence | CPT/HCPCS: 11042; 11045 ==

== ENCOUNTER → 2021-01-16 11:05 | Outpatient (BNVA) | payer MEDICARE, MEDICAID, SELFPAY | PROVIDERS: PCP Nurse Practitioner Family; Referring Provider Thoracic Surgery (Cardiothoracic Vascular Surgery); Visit Provider Student in an Organized Health Care Education/Training Program | DX: M86.112 Other acute osteomyelitis, left shoulder (principal) | CPT/HCPCS: 80053; 85025; 85651; 86140; 87040 ==

== ENCOUNTER 2021-01-23 14:03 | Outpatient (CLI) | payer MEDICARE, MEDICAID, SELFPAY | END 2021-01-23 14:04 | disposition home or self-care (01) | LOC: WOUND 14:05 | PROVIDERS: PCP Nurse Practitioner Family; Visit Provider Nurse Practitioner Family | DX: T81.89XA Other complications of procedures, not elsewhere classified, initial encounter (principal); Y83.8 Other surgical procedures as the cause of abnormal reaction of the patient, or of later complication, without mention of misadventure at the time of the procedure; Z87.891 Personal history of nicotine dependence | CPT/HCPCS: G0463 ==

== ENCOUNTER 2021-01-30 14:00 | Outpatient (CLI) | payer MEDICARE, MEDICAID, SELFPAY | END 2021-01-30 14:01 | disposition home or self-care (01) | LOC: WOUND 14:02 | PROVIDERS: PCP Nurse Practitioner Family; Visit Provider Emergency Medicine | DX: T81.89XA Other complications of procedures, not elsewhere classified, initial encounter (principal); Y83.8 Other surgical procedures as the cause of abnormal reaction of the patient, or of later complication, without mention of misadventure at the time of the procedure; Z87.891 Personal history of nicotine dependence | CPT/HCPCS: 11042 ==

== ENCOUNTER 2021-02-13 14:53 | Outpatient (CLI) | payer MEDICARE, MEDICAID, SELFPAY | END 2021-02-13 14:54 | disposition home or self-care (01) | PROVIDERS: PCP Nurse Practitioner Family; Visit Provider Nurse Practitioner Family | DX: T81.89XA Other complications of procedures, not elsewhere classified, initial encounter (principal); Y83.8 Other surgical procedures as the cause of abnormal reaction of the patient, or of later complication, without mention of misadventure at the time of the procedure; Z87.891 Personal history of nicotine dependence; I87.2 Venous insufficiency (chronic) (peripheral) | CPT/HCPCS: 11042; 99212; A6197 ==

== ENCOUNTER 2021-02-20 13:08 | Outpatient (CLI) | payer MEDICARE, MEDICAID, SELFPAY | END 2021-02-20 13:09 | disposition home or self-care (01) | LOC: WOUND 13:09 | PROVIDERS: PCP Nurse Practitioner Family; Visit Provider Nurse Practitioner Family | DX: T81.89XA Other complications of procedures, not elsewhere classified, initial encounter (principal); Y83.8 Other surgical procedures as the cause of abnormal reaction of the patient, or of later complication, without mention of misadventure at the time of the procedure; Z87.891 Personal history of nicotine dependence | CPT/HCPCS: 11042; A6197 ==

== ENCOUNTER 2021-02-28 12:59 | Outpatient (CLI) | payer MEDICARE, MEDICAID, SELFPAY | END 2021-02-28 13:00 | disposition home or self-care (01) | LOC: WOUND 13:00 | PROVIDERS: PCP Nurse Practitioner Family; Visit Provider Thoracic Surgery (Cardiothoracic Vascular Surgery) | DX: I96 Gangrene, not elsewhere classified (principal); T81.89XA Other complications of procedures, not elsewhere classified, initial encounter; Y83.8 Other surgical procedures as the cause of abnormal reaction of the patient, or of later complication, without mention of misadventure at the time of the procedure; I87.2 Venous insufficiency (chronic) (peripheral); Z87.891 Personal history of nicotine dependence | CPT/HCPCS: 97597; A6197 ==

== ENCOUNTER 2021-03-07 10:05 | Outpatient (CLI) | payer MEDICARE, MEDICAID, SELFPAY | END 2021-03-07 10:06 | disposition home or self-care (01) | LOC: WOUND 10:06 | PROVIDERS: PCP Nurse Practitioner Family; Visit Provider Thoracic Surgery (Cardiothoracic Vascular Surgery) | DX: I96 Gangrene, not elsewhere classified (principal); T81.89XA Other complications of procedures, not elsewhere classified, initial encounter; Y83.8 Other surgical procedures as the cause of abnormal reaction of the patient, or of later complication, without mention of misadventure at the time of the procedure; Z87.891 Personal history of nicotine dependence | CPT/HCPCS: 97597; A6197 ==

== ENCOUNTER 2021-03-14 13:01 | Outpatient (CLI) | payer MEDICARE, MEDICAID, SELFPAY | END 2021-03-14 13:02 | disposition home or self-care (01) | LOC: WOUND 13:02 | PROVIDERS: PCP Nurse Practitioner Family; Visit Provider Nurse Practitioner Family | DX: I96 Gangrene, not elsewhere classified (principal); T81.89XA Other complications of procedures, not elsewhere classified, initial encounter; Y83.8 Other surgical procedures as the cause of abnormal reaction of the patient, or of later complication, without mention of misadventure at the time of the procedure; Z87.891 Personal history of nicotine dependence | CPT/HCPCS: 99213 ==

== ENCOUNTER 2021-04-11 13:36 | Outpatient (CLI) | payer MEDICARE, MEDICAID, SELFPAY | END 2021-04-11 13:37 | disposition home or self-care (01) | LOC: WOUND 13:37 | PROVIDERS: PCP Nurse Practitioner Family; Visit Provider Thoracic Surgery (Cardiothoracic Vascular Surgery) | DX: I96 Gangrene, not elsewhere classified (principal); T81.89XA Other complications of procedures, not elsewhere classified, initial encounter; Y83.8 Other surgical procedures as the cause of abnormal reaction of the patient, or of later complication, without mention of misadventure at the time of the procedure; Z87.891 Personal history of nicotine dependence | CPT/HCPCS: 97597; A6197 ==

== ENCOUNTER 2021-05-02 13:31 | Outpatient (CLI) | payer MEDICARE, MEDICAID, SELFPAY | END 2021-05-02 13:32 | disposition home or self-care (01) | LOC: WOUND 13:33 | PROVIDERS: PCP Nurse Practitioner Family; Visit Provider Thoracic Surgery (Cardiothoracic Vascular Surgery) | DX: T81.89XA Other complications of procedures, not elsewhere classified, initial encounter (principal); L98.4 Non-pressure chronic ulcer of skin, not elsewhere classified; Z87.891 Personal history of nicotine dependence | CPT/HCPCS: 97597; A6197 ==

== ENCOUNTER 2021-05-09 13:37 | Outpatient (CLI) | payer MEDICARE, MEDICAID, SELFPAY | END 2021-05-09 13:38 | disposition home or self-care (01) | LOC: WOUND 13:42 | PROVIDERS: PCP Nurse Practitioner Family; Visit Provider Thoracic Surgery (Cardiothoracic Vascular Surgery) | DX: I96 Gangrene, not elsewhere classified (principal); T81.89XA Other complications of procedures, not elsewhere classified, initial encounter; Y83.8 Other surgical procedures as the cause of abnormal reaction of the patient, or of later complication, without mention of misadventure at the time of the procedure; L98.4 Non-pressure chronic ulcer of skin, not elsewhere classified; Z87.891 Personal history of nicotine dependence | CPT/HCPCS: 11044 ==

== ENCOUNTER → 2021-05-16 13:36 | Outpatient (BNVA) | payer MEDICARE, MEDICAID, SELFPAY | PROVIDERS: PCP Nurse Practitioner Family; Visit Provider Thoracic Surgery (Cardiothoracic Vascular Surgery) | DX: I96 Gangrene, not elsewhere classified (principal); L98.422 Non-pressure chronic ulcer of back with fat layer exposed | CPT/HCPCS: 97597; A6197 ==

== ENCOUNTER → 2021-05-23 14:27 | Outpatient (BNVA) | payer MEDICARE, MEDICAID, SELFPAY | PROVIDERS: PCP Nurse Practitioner Family; Visit Provider Thoracic Surgery (Cardiothoracic Vascular Surgery) | DX: Z09 Encounter for follow-up examination after completed treatment for conditions other than malignant neoplasm (principal); Z87.891 Personal history of nicotine dependence | CPT/HCPCS: 99212; 99213 ==

== ENCOUNTER 2021-06-20 11:29 | Emergency (ER) | payer MEDICARE, MEDICAID, SELFPAY ==
[2021-06-20] VITALS (10 sets, daily range): BP systolic 98–139; BP diastolic 63–76; PULSE 67–82; RESP 16–18; TEMP 36.8–37; O2SAT 99–100; BMI 20.5
--- NOTE | 2021-06-20 12:30 | XR_ITS ---
WS: [id number] Portable AP upright chest, 06/20/2021 Clinical Data: dyspnea Comparison: Portable chest, 06/05/2020. Findings: No nodules or masses are seen. The heart is normal. The pulmonary vascularity is not increa sed. No pneumonia or pneumothorax is seen. There is left basilar opacification which is probably fibr osis and pleural reaction. The right lung is clear. The aortic arch and descending thoracic aorta domingo w tortuosity. The right diaphragm is flattened. There are left axillary clips from surgery. There are also clips in the supraclavicular region bilaterally overlying the superior proximal ribs. XR/XR chest 1V portable [id number] Impression: 1. Left basilar opacification which probably chronic fibrosis. 2. Hyperinflation and atherosclerosis.
--- NOTE | 2021-06-20 12:30 | CT_ITS ---
WS: [id number] CT CHEST WITH INTRAVENOUS CONTRAST HISTORY: eval for infection TECHNIQUE: Contiguous 5 mm axial imaging performed on the thorax. Coronal and sagittal reformats are submitted. All CT scans at [facility] use at least one of these dose optimization techniques: automated exposure control; mA and/or kV adjustment per patient size (includes targeted exams where dose is matched to clinical indication); or iterative reconstruction. CONTRAST: Omnipaque 300; 95 mL IV. DLP: 478.15 mGy.cm COMPARISON: 10/06/2020 Lungs and central airway: Areas of scarring and chronic atelectasis in the mid and lower LEFT lung. S imilar to the prior study. No pneumonia or nodules. Pleura: Mild pleural thickening in the inferior LEFT thorax. Slight elevation and blunting of the LEF T costophrenic angle from pleural thickening. Heart and pericardium: Normal size heart with no pericardial effusion. Mediastinum and josafat: No mediastinum or hilar adenopathy. Vessels: Mild atherosclerosis aorta. Normal size pulmonary artery. Scattered coronary artery atherosc lerotic plaques. Chest wall and lower neck: There are several clips noted within the LEFT chest wall near the axilla. There is soft tissue thickening and loss of the normal fat planes involving the LEFT lateral chest wa ll around the scapula. There is new air infiltrating within the soft tissues surrounding the scapula. There is air anterior and along the posterior lateral body of the scapula. There is a focal soft tis sean defect with may be an ulceration measuring 2.5 cm. Ulceration contains air and extends nearly to the level of the ribs. Upper abdomen: Elevated LEFT diaphragm with blunting of the costophrenic angle. Prior cholecystectomy . No adrenal mass evident. Stable nodules in the LEFT upper abdomen are probably splenule's are relat ed to splenic infarct or splenosis. Osseous structures: Thoracic spondylitic changes. Prior posterior healed rib fractures. Mild deformit y involving the LEFT lateral thoracic wall from prior rib fractures. CT/CT chest w con* [id number] IMPRESSION: 1. Soft tissue thickening with edema and induration centered around the LEFT s capula. Consistent with cellulitis. No focal well defined abscess. There is air dissecting along the soft tissue and muscle planes around the LEFT scapula. Di fferential includes air introduced during a recent debridement or necrotizing f asciitis. 2. Soft tissue ulceration adjacent to the LEFT scapula. 3. Stable elevation LEFT hemidiaphragm and pleural thickening. Notified Yolande Mg MD at 06/20/2021 3:00 PM. Unable to contact at this time.
--- NOTE | 2021-06-20 12:30 | CT_ITS ---
WS: [id number] CT HEAD NONCONTRAST HISTORY: headache TECHNIQUE: Contiguous axial imaging performed through the brain in 2.5 mm imaging. Bone and soft tiss ue windows. Sagittal and coronal reformats reviewed. All CT scans at [facility] use at least one of these dose optimization techniques: automated exposure control; mA and/or kV adjustment per pa tient size (includes targeted exams where dose is matched to clinical indication); or iterative recon struction. DLP: 995.89 mGy.cm COMPARISON: 06/02/2020, 12/11/2010 No acute intracranial hemorrhage, midline shift or mass effect. Mild atrophy and volume loss in the RIGHT centrum semiovale ovale and beltran radiata. Exvacuodilatati on of the RIGHT lateral ventricle. Findings have been present since 2010. No acute interval change. Ventricles: Extra-axial dilatation of the RIGHT lateral ventricle. No inferior displacement of cerebellar tonsils. Paranasal sinuses: As visualized are clear. Mastoid air cells: Well pneumatized. Calvarium and scalp: Skull is intact with no soft tissue edema or swelling. CT/CT head wo con* [id number] IMPRESSION: 1. No acute intracranial hemorrhage or edema. 2. Volume loss and atrophy and chronic ischemic changes in the RIGHT centrum s emiovale ovale and beltran radiata. Similar to the study from 2010.
[2021-06-20 12:39] LABS: Basophils % 0.3 %; Eosinophils # 0.1 10^3/uL (0.0-0.8); Eosinophils % 0.8 %; Hematocrit 35.7 % (42.0-52.0); Hemoglobin 11.6 g/dL (11.7-16.6); Lymphocytes # 1.1 10^3/uL (0.8-4.8); Lymphocytes % 11.2 %; Mean Corpuscular HGB Conc 32.5 g/dL (30.0-36.0); Mean Corpuscular Hemoglobin 31.1 pg (28.0-34.0); Mean Corpuscular Volume 95.7 fl (80-94); Mean Platelet Volume 9.8 fL (7.4-10.4); Monocytes # 0.6 10^3/uL (0.2-0.9); Monocytes % 5.8 %; Neutrophils # 7.93 10^3/uL (1.8-7.7); Neutrophils % 81.6 %; Nucleated Red Blood Cells % 0 %; Platelet Count 211 10^3/cmm (130-400); Red Blood Count 3.73 10^6/uL (4.1-5.3); Red Cell Distribution Width 15.7 % (12.1-15.1); White Blood Count 9.7 10^3/uL (4.0-10.0)
[2021-06-20 12:48] LABS: Add Urine Microscopic? NO; Charge for UA Resulting for Rev
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
[2021-06-20 13:01] LABS: Blood Urea Nitrogen 8 mg/dL (8-23); Calcium 8.2 mg/dL (8.5-10.5); Carbon Dioxide 29 mmol/L (22-29); Chloride 102 mmol/L (98-107); Glomerular Filtration Rate 96.1 mL/min (90-130); Glucose 106 mg/dL (65-115); Osmolality Calculated 287 mOsm/kg (285-295); Sodium 139 mmol/L (136-145)
[2021-06-20 13:05] LABS: Bilirubin Urine Neg (Negative); Blood Urine Neg (Negative); Glucose Urine UA Norm (Normal); Ketones Urine Negative (Negative); Leukocyte Esterase Urine Negative (Negative); Nitrate Urine Negative (Negative); Protein Urine Neg (Negative); Specific Gravity, Urine 1.015 (1.005-1.030); Urine Appearance Clear (CLEAR); Urine Color Yellow (Yellow); Urobilinogen Urine Norm (Negative); pH Urine 6 (5-7)
[2021-06-20] MEDS: acetaminophen 500 mg Tablet 1000 MG PO (13:23)
[2021-06-20] MEDS: sodium chloride 0.9% 1,000 ML 999 ML IV (13:24)
[2021-06-20 13:33] LABS: Anion Gap 12.1 (5-19); Potassium 4.1 mmol/L (3.5-5.1)
[2021-06-20 14:03] LABS: Lactate (Lactic Acid level) 0.7 mmol/L (0.5-2.2)
[2021-06-20] MEDS: iohexol 300 mg/mL 100 mL Btl IV (14:27)
[2021-06-20 14:43] LABS: Adenovirus Not Detected (NOT DETECT); Chlamydia Pneumoniae Not Detected (NOT DETECT); Coronavirus 229E,HKU1,NL63,OC4 Not Detected (NOT DETECT); Human Metapneumovirus Not Detected (NOT DETECT); Human Rhinovirus/Enterovirus Not Detected (NOT DETECT); Influenza A Not Detected (NOT DETECT); Influenza A H1 Not Detected (NOT DETECT); Influenza A H1-2009 Not Detected (NOT DETECT); Influenza A H3 Not Detected (NOT DETECT); Influenza B Not Detected (NOT DETECT); Mycoplasma Pneumoniae Not Detected (NOT DETECT); Parainfluenza Virus Type 1 Not Detected (NOT DETECT); Parainfluenza Virus Type 2 Not Detected (NOT DETECT); Parainfluenza Virus Type 3 Not Detected (NOT DETECT); Parainfluenza Virus Type 4 Not Detected (NOT DETECT); Respiratory Syncytial Virus A Not Detected (NOT DETECT); Respiratory Syncytial Virus B Not Detected (NOT DETECT); SARS-COV-2 Not Detected (NOT DETECT)
== END 2021-06-20 18:38 | disposition home or self-care (01) ==
PROVIDERS: Emergency Provider Emergency Medicine; PCP Nurse Practitioner Family
DX: L03.312 Cellulitis of back [any part except buttock and flank] (principal)
CPT/HCPCS: 36415; 70450; 71045; 71260; 80048; 81003; 83605; 85025; 87040; 87486; 87581; 87633; 96360; 99284; J7030; Q9967

== ENCOUNTER 2021-10-09 12:08 | Emergency (ER) | payer MEDICARE, MEDICAID, SELFPAY ==
[2021-10-09 12:29] VITALS: BP 128/76; PULSE 91; RESP 18; TEMP 36.6; O2SAT 97; BMI 21.7
--- NOTE | 2021-10-09 13:14 | CTR_ITS ---
PROCEDURE INFORMATION: Exam: CT Maxillofacial Without Contrast; Mandible Exam date and time: 10/09/2021 1:27 PM Age: 70 years old Clinical indication: Condition or disease; Cancer; Mouth; Prior surgery; Surgery type: Mandibular bone graft/implant; Additional info: Reports issue with mandibular bone graft/implant TECHNIQUE: Imaging protocol: Computed tomography maxillofacial without contrast. Exam focused on the mandible. Axial, coronal and sagittal reformatted images were created and reviewed. Radiation optimization: All CT scans at this facility use at least one of these dose optimization techniques: automated exposure control; mA and/or kV adjustment per patient size (includes targeted exams where dose is matched to clinical indication); or iterative reconstruction. COMPARISON: CT neck w con* [id number] 10/06/2020 9:59 AM RADIATION DOSE METRICS: Total DLP (mGy-cm): 761.68 FINDINGS: Bones/joints: Status post partial mandibular resection with associated bone graft and fixation hardware, unchanged in alignment and appearance. Chronic deformity of the left orbital floor. Paranasal sinuses: Be mild ethmoid, right maxillary and right sphenoid sinus mucosal thickening. No air-fluid levels. Soft tissues: Numerous surgical clips. CT/CT facial bones wo con* [id number] IMPRESSION: 1. The no significant interval change. 2. Additional findings, as above.
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
== END 2021-10-09 14:38 | disposition home or self-care (01) ==
PROVIDERS: Emergency Provider Physician Assistant; PCP Nurse Practitioner Family
DX: Z03.89 Encounter for observation for other suspected diseases and conditions ruled out (principal); Z96.7 Presence of other bone and tendon implants; Z79.82 Long term (current) use of aspirin; N18.30 Chronic kidney disease, stage 3 unspecified; Z86.19 Personal history of other infectious and parasitic diseases
CPT/HCPCS: 70486; 99284

== ENCOUNTER → 2022-03-28 09:37 | Outpatient (BNVA) | payer MEDICARE, MEDICAID, SELFPAY | PROVIDERS: PCP Nurse Practitioner Family; Visit Provider Nurse Practitioner Family | DX: E55.9 Vitamin D deficiency, unspecified (principal); Z12.5 Encounter for screening for malignant neoplasm of prostate; E53.8 Deficiency of other specified B group vitamins; R25.2 Cramp and spasm; E79.0 Hyperuricemia without signs of inflammatory arthritis and tophaceous disease; G62.9 Polyneuropathy, unspecified | CPT/HCPCS: 80053; 80061; 82306; 82607; 82746; 83036; 83735; 84550; G0103 ==

== ENCOUNTER → 2022-04-09 12:13 | Outpatient (BNVA) | payer MEDICARE, MEDICAID, SELFPAY | PROVIDERS: PCP Nurse Practitioner Family; Visit Provider Nurse Practitioner Family | DX: Z86.19 Personal history of other infectious and parasitic diseases (principal); Z11.59 Encounter for screening for other viral diseases | CPT/HCPCS: 86705; 86706; 86709; 86803; 87340; 87522 ==

== ENCOUNTER 2022-10-03 17:15 | Emergency (ER) | payer MEDICARE, MEDICAID, SELFPAY ==
[2022-10-03 17:15] VITALS: BP 159/85; PULSE 94; RESP 16; TEMP 36.6; O2SAT 99; BMI 20.4
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
[2022-10-03 17:57] VITALS: BP 141/84; PULSE 87; RESP 16; O2SAT 99
== END 2022-10-03 17:59 | disposition home or self-care (01) ==
PROVIDERS: Emergency Provider Emergency Medicine; PCP Nurse Practitioner Family
DX: T67.9XXA Effect of heat and light, unspecified, initial encounter (principal); X30.XXXA Exposure to excessive natural heat, initial encounter; N18.30 Chronic kidney disease, stage 3 unspecified; Z86.19 Personal history of other infectious and parasitic diseases; Z90.5 Acquired absence of kidney; Z90.81 Acquired absence of spleen
CPT/HCPCS: 99281

== ENCOUNTER → 2023-01-22 10:15 | Outpatient (BNVA) | payer MEDICARE, MEDICAID, SELFPAY | PROVIDERS: PCP Nurse Practitioner Family; Visit Provider Nurse Practitioner Family | DX: R79.0 Abnormal level of blood mineral (principal); G25.0 Essential tremor; G62.9 Polyneuropathy, unspecified | CPT/HCPCS: 80053; 83735 ==

== ENCOUNTER → 2024-04-20 11:43 | Outpatient (BNVA) | payer MEDICARE, MEDICAID, SELFPAY | PROVIDERS: Family Provider Nurse Practitioner Family; PCP Nurse Practitioner Family; Visit Provider Nurse Practitioner Family | DX: Z13.6 Encounter for screening for cardiovascular disorders (principal); E55.9 Vitamin D deficiency, unspecified; E53.8 Deficiency of other specified B group vitamins; G62.9 Polyneuropathy, unspecified; G47.33 Obstructive sleep apnea (adult) (pediatric); L40.9 Psoriasis, unspecified; R60.9 Edema, unspecified; F17.200 Nicotine dependence, unspecified, uncomplicated; G25.0 Essential tremor; E79.0 Hyperuricemia without signs of inflammatory arthritis and tophaceous disease | CPT/HCPCS: 80053; 80061; 82306; 82607; 83036; 84443; 85025 ==

== ENCOUNTER → 2024-08-24 12:04 | Outpatient (BNVA) | payer MEDICARE, MEDICAID, SELFPAY | PROVIDERS: PCP Nurse Practitioner Family; Visit Provider Nurse Practitioner Family | DX: G25.0 Essential tremor (principal); E78.5 Hyperlipidemia, unspecified | CPT/HCPCS: 80053; 80061; 84443; 85025 ==